=== PATIENT | female | born 1930 | race African-American/Black ===

== ENCOUNTER 2018-06-21 12:53 | Outpatient (CLI) | payer MEDICARE | END 2018-06-21 12:54 | disposition home or self-care (01) | LOC: BICMAMMO 12:53 | PROVIDERS: ATTEND Nurse Practitioner Family | DX: Z13.820 Encounter for screening for osteoporosis (principal); M85.89 Other specified disorders of bone density and structure, multiple sites; Z78.0 Asymptomatic menopausal state | CPT/HCPCS: 77080 ==

== ENCOUNTER 2018-07-02 10:41 | Outpatient (CLI) | payer MEDICARE | END 2018-07-02 10:42 | disposition home or self-care (01) | LOC: BICULT 10:41 | PROVIDERS: ATTEND Internal Medicine Nephrology | DX: N18.3 Chronic kidney disease, stage 3 (moderate) (principal); N28.1 Cyst of kidney, acquired; N13.30 Unspecified hydronephrosis | CPT/HCPCS: 76770 ==

== ENCOUNTER 2018-08-04 15:19 | Emergency (ER) | payer MEDICARE ==
--- NOTE | 2018-08-04 16:27 | CT ---
CT HEAD WITHOUT CONTRAST: 08/04/18 Multiple axial tomograms obtained through the head without IV enhancement. INDICATIONS: Fall with injury to head. Comparison made to head CT of 01/10/17. Ventricles remain normal size and position. Moderately severe chronic ischemic white matter changes a ppear stable from prior exam. No evidence of acute intracranial hemorrhage. No mass or infarct. Sinus es and mastoids appear aerated. IMPRESSION: No evidence of acute process or significant interval change from prior study. POS: RAJANI
[2018-08-04] MEDS ORDERED: Acetaminophen 500 MG TAB ONE (16:50)
== END 2018-08-04 17:04 | disposition home or self-care (01) ==
LOC: ERS 15:19
DX: S09.90XA Unspecified injury of head, initial encounter (principal); S00.01XA Abrasion of scalp, initial encounter; E11.9 Type 2 diabetes mellitus without complications; I10 Essential (primary) hypertension; Z79.899 Other long term (current) drug therapy; Z79.84 Long term (current) use of oral hypoglycemic drugs; W22.8XXA Striking against or struck by other objects, initial encounter
CPT/HCPCS: 70450

== ENCOUNTER 2018-11-13 09:28 | Outpatient (CLI) | payer MEDICARE ==
--- NOTE | 2018-11-13 11:06 | ULT ---
RENAL ULTRASOUND: INDICATIONS: Follow up hydronephrosis. COMPARISON: 07/02/2018 FINDINGS: The right kidney measures 9.8 x 3.9 x 4.3 cm. Mild right hydronephrosis is stable. Small cyst, muna uring 1 cm in size, involving the anterior aspect of the right mid kidney, is stable. Right-sided hy dronephrosis is unchanged, following voiding. The left kidney measures 8.8 x 4.7 x 4.5 cm. There is slight prominence of an inferior pole renal ca lyx, likely stable to the prior exam. No yamil hydronephrosis is evident. No focal solid renal lesi on is evident. Pre-void bladder volume is 24.5 mL. The patient completely emptied while voiding. IMPRESSION: 1. Stable mild right hydronephrosis. Recommend consideration for CT abdomen and pelvis without cont rast for further evaluation. 2. Small stable right renal cyst, measuring 1 cm. 3. Slight prominence of the inferior pole left renal calyx is likely stable to the prior examination , showing better detail on the current study. This may reflect a small peripelvic cyst or a small fo татьяна region of calyceal stenosis. CT examination may be helpful for improved characterization. POS: RAJANI
== END 2018-11-13 09:29 | disposition home or self-care (01) ==
LOC: BICULT 09:28
PROVIDERS: ATTEND Internal Medicine Nephrology
DX: N13.30 Unspecified hydronephrosis (principal); N28.1 Cyst of kidney, acquired; N18.3 Chronic kidney disease, stage 3 (moderate)
CPT/HCPCS: 76770

== ENCOUNTER 2019-04-03 13:07 | Outpatient (CLI) | payer MEDICARE ==
--- NOTE | 2019-04-03 13:35 | RAD ---
RIGHT HIP TWO VIEWS: 04/03/19 HISTORY: Right hip pain. COMPARISON: 01/18/06. FINDINGS/IMPRESSION: Significant arthrosis and degenerative changes with hypertrophic osteophytosis and joint space narrow ing without acute fracture or dislocation. POS: OFF
--- NOTE | 2019-04-03 13:39 | RAD ---
XR Knee Rt 4 View STANDARD HISTORY: Knee pain status post fall COMPARISON: There are no films available for comparison. FINDINGS: There are marked arthritic changes of the knee with severe degenerative changes of the medi al compartment also patellofemoral and lateral compartment degenerative change. Small joint effusion is seen. The bones are demineralized. No fracture. IMPRESSION: No evidence of fracture.
--- NOTE | 2019-04-03 13:52 | RAD ---
RIGHT FEMUR 2 VIEWS: FINDINGS: The proximal femur and hip were not included on this study but are included on the right hip exam don e today as well. No acute fracture or dislocation. Arthrosis changes of the knee joint. IMPRESSION: Arthrosis changes of the knee joint. No acute fracture or dislocation of the visualized femur. POS: OFF
== END 2019-04-03 13:08 | disposition home or self-care (01) ==
LOC: RAD-FRANK 13:07
PROVIDERS: ATTEND Nurse Practitioner Family
DX: M25.561 Pain in right knee (principal); M25.551 Pain in right hip; M16.11 Unilateral primary osteoarthritis, right hip; M25.751 Osteophyte, right hip; W19.XXXA Unspecified fall, initial encounter

== ENCOUNTER 2019-10-06 17:33 | Emergency (ER) | payer MEDICARE ==
--- NOTE | 2019-10-06 18:01 | RAD ---
4 views left knee: 10/06/2019 COMPARISON: None HISTORY: Swelling, fall FINDINGS: There is prominent medial and lateral compartment narrowing with prominent osteophyte forma tion. There is prominent patellofemoral joint space with posterior patellar osteophyte formation. There is no displaced fracture or evidence of dislocation seen. There is osseous fragmentation along the superior margin of the patella. IMPRESSION: Severe multicompartment degenerative joint disease. No acute fracture or dislocation.
--- NOTE | 2019-10-06 19:00 | CT ---
CT of the left knee: 10/06/2019 COMPARISON: None HISTORY: Injury, trauma, pain TECHNIQUE: Axial CT imaging at 2.5 mm intervals through the left knee without contrast. Coronal and s agittal reformatted imaging obtained. FINDINGS: There is corticated osseous fragmentation along the superior aspect of the patella. There i s significant posterior patellar osteophyte formation and associated subchondral sclerosis. There is no significant knee joint effusion. There is prominent medial compartment and lateral compartment degenerative disease with joint space n arrowing, chondrocalcinosis, and prominent osteophyte formation. The imaged portions of the distal femur demonstrate no evidence for acute fracture. There is prominent patellofemoral joint space narro wing with no discrete patellar fracture. The imaged proximal tibia and proximal fibula demonstrate no evidence for displaced fracture. No evid ence for dislocation is seen. IMPRESSION: Multicompartment degenerative joint disease. No displaced fracture or evidence of disloca tion is appreciated. If symptoms persist, nonemergent follow-up left knee MRI suggested to evaluate for an internal derangement.
[2019-10-06 19:24] LABS: #Eosinphils 0.1 thou/uL (0.0-0.7); #Lymphocytes 1.7 thou/uL (1.20-3.40); #Monocytes 0.5 thou/uL (0.11-0.59); #Neutrophils 2.1 thou/uL (1.40-6.50); %Basophils 1.1 % (0.0-1.0); %Eosinophils 1.6 % (0.0-10.0); %Lymphocytes 38.8 % (21.0-51.0); %Monocytes 11.2 % (0.0-10.0); %Neutrophils 47.4 % (42.0-75.0); Hemoglobin 12.8 g/dL (12.0-16.0); Mean Corpuscular HGB CONC 34.6 g/dL (32.0-36.0); Mean Corpuscular Hemoglobin 32.8 pg (27.0-31.0); Mean Corpuscular Volume 94.9 fL (78.0-98.0); Mean Platelet Volume 7.7 fL (7.4-10.4); Platelet Count 214 thou/uL (130-400); RBC Distribution Width 12.7 % (11.5-14.5); Red Blood Cell (RBC) Count 3.91 mill/uL (4.20-5.40); White Blood Cell (WBC) Count 4.4 thou/uL (4.8-10.8)
[2019-10-06 19:46] LABS: Anion Gap 14 mmol/L (10-20); BUN (Urea Nitrogen) 30 mg/dL (9.8-20.1); Calc. Creatinine Clearance 0 mL/min (70-130); Calcium 9.9 mg/dL (7.8-10.44); Carbon Dioxide 24 mmol/L (23-31); Chloride 107 mmol/L (98-107); Estimated GFR-MDRD 42; Glucose 94 mg/dL (83-110); Potassium 4.3 mmol/L (3.5-5.1); Sodium 141 mmol/L (136-145)
[2019-10-06] MEDS ORDERED: Acetaminophen 500 MG TAB ONE (23:07)
== END 2019-10-07 00:37 ==
LOC: ERS 17:33
DX: M25.462 Effusion, left knee (principal); E78.5 Hyperlipidemia, unspecified; E78.00 Pure hypercholesterolemia, unspecified; E11.9 Type 2 diabetes mellitus without complications; I10 Essential (primary) hypertension
CPT/HCPCS: 36415; 80048; 84484; 85025; 93005

== ENCOUNTER 2020-06-12 06:07 | Day surgery (SDC) | payer MEDICARE ==
[2020-06-12] MEDS ORDERED: Fentanyl 100 MCG/2 ML VIAL ONE (07:50)
[2020-06-12] MEDS ORDERED: Lidocaine 1% PF 5 ML VIAL ONE (09:52)
--- NOTE | 2020-06-12 11:31 | OP ---
DATE OF PROCEDURE: 06/12/2020 PROCEDURES PERFORMED: 1. Esophagogastroduodenoscopy with biopsy. 2. Colonoscopy with biopsy and polypectomy. INDICATIONS FOR PROCEDURE: Chronic midepigastric abdominal pain, irregular bowel habits/diarrhea. DESCRIPTION OF PROCEDURE: After the risks and benefits of the procedure were explained to the patient including risks of bleeding, infection, perforation, reactions to anesthesia, aspiration, and/or pain, informed consent was obtained. The patient was then taken to the endoscopy suite where she was maneuvered into the left lateral decubitus position followed by introduction of deep sedation via propofol and anesthesia support. Once adequate sedation was achieved, the standard gastroscope was introduced into the mouth with intubation of the esophagus, stomach, and the proximal small intestines with the findings listed below. The patient tolerated the procedure well with no immediate perioperative complications. On conclusion of the procedure, all equipment was removed from the patient and the bed was rotated 180 degrees in anticipation of the colonoscopy. A digital rectal examination was then performed followed by introduction of the standard colonoscope, which was advanced to the terminal ileum with some difficulty due to redundancy/tortuosity of the colon, requiring manual abdominal pressure to facilitate passage of the scope. Initially, the quality of the prep was fair with a large amount of retained liquid stool, but converted to a good prep with irrigation and suctioning. The patient tolerated this portion of the procedure well with no immediate perioperative complications. On conclusion of the procedure, all equipment was removed from the patient and she was transferred to Day Stay in satisfactory condition. EGD FINDINGS: Esophagus: Normal-appearing mucosa was seen in the proximal, mid, and distal esophagus. There was some mild tortuosity of the distal esophagus, consistent with presbyesophagus. However, there was no evidence of erosions, ulcerations, mass lesions, or active/recent bleeding. Stomach: Normal-appearing mucosa was seen in the gastric cardia, fundus, body, greater curvature, antrum, and incisura. There was no evidence of erosions, ulcerations, mass lesions, or active/recent bleeding. Duodenum: Mild mucosal erythema was seen in small patches in the duodenal bulb with each of these patches measuring 1 to 2 mm in diameter, but otherwise there was no other abnormality seen in this region. Normal-appearing mucosa was then seen in the second portion of the duodenum. Random biopsies were then taken from both the duodenal bulb and second portion of the duodenum for evaluation of possible celiac sprue. Otherwise, there was no evidence of erosions, ulcerations, mass lesions, or active/recent bleeding. IMPRESSION: 1. Mild duodenitis without other abnormalities. 2. Otherwise normal upper endoscopy. 3. No etiology for the patient's abdominal pain was seen during this portion of the exam. COLONOSCOPY FINDINGS: Digital rectal exam: Medium to large external hemorrhoids were seen on external examination, but normal sphincter tone noted with no masses palpated. Colon findings: Normal-appearing mucosa was seen within the terminal ileum as well as at the ileocecal valve and appendiceal orifice. Normal-appearing mucosa was then seen in the cecum, ascending colon, and transverse colon. Two polyps, measuring 2 mm and 6 to 7 mm, were seen in the descending colon and removed with cold snare and snare cautery polypectomy respectively. They were both retrieved and placed in a specimen jar for further evaluation. Scattered small diverticula were seen within the sigmoid colon. Normal-appearing mucosa was then seen within the rectum with small to medium-sized internal hemorrhoids seen on rectal retroflexion. IMPRESSION: 1. Two descending colon polyps, measuring 2 and 6-7 mm, status post cold snare and hot snare polypectomy respectively. 2. Mild sigmoid diverticulosis. 3. Internal and external hemorrhoids. 4. The etiology of the patient's abdominal pain was not seen during this examination today. 5. Fair colonic preparation with large amount of liquid stool, converted to a good prep with aggressive irrigation and suctioning. RECOMMENDATIONS: 1. Would follow up on the biopsy and polypectomy results with repeat colonoscopy based on pathology report. Based on the appearance today, most likely would repeat a surveillance colonoscopy in 5 years. 2. Would recommend a higher fiber diet given the presence of diverticulosis and hemorrhoids. 3. Continue fiber supplementation and MiraLAX one capsule twice daily for constipation. 4. Would continue the patient on omeprazole 20 mg daily until pathology report seen. If no abnormal findings, we will consider weaning the patient off this medication. 5. Would avoid any further laxatives/stool softeners as that may be creating these irregular bowel habits. 6. Follow up in the GI Clinic in 4-6 weeks for further evaluation. Job ID: [id number]
== END 2020-06-12 10:10 | disposition home or self-care (01) ==
LOC: SDC 06:07
PROVIDERS: ATTEND Internal Medicine
PROC: 0DBM8ZZ Excision of Descending Colon, Via Natural or Artificial Opening Endoscopic (ICD-10-PCS; principal; 2020-06-12)
PROC: 0DB98ZX Excision of Duodenum, Via Natural or Artificial Opening Endoscopic, Diagnostic (ICD-10-PCS; 2020-06-12)
DX: D12.4 Benign neoplasm of descending colon (principal); K29.80 Duodenitis without bleeding; K21.9 Gastro-esophageal reflux disease without esophagitis; E11.9 Type 2 diabetes mellitus without complications; E78.00 Pure hypercholesterolemia, unspecified; I10 Essential (primary) hypertension; Z79.82 Long term (current) use of aspirin; Z79.84 Long term (current) use of oral hypoglycemic drugs; Z79.899 Other long term (current) drug therapy; Z88.0 Allergy status to penicillin; Z88.5 Allergy status to narcotic agent
CPT/HCPCS: 88305; J3010

== ENCOUNTER 2020-06-24 17:25 | Inpatient (IN) | payer MEDICARE, OTHER ==
[~2020-06-24 17:25] MED LIST: Iopamidol-370 76% 500 ML 1 ML ONE
--- NOTE | 2020-06-24 17:38 | CT ---
Head CT without contrast 06/24/2020: COMPARISON: 08/04/2018 HISTORY: Right-sided weakness Stroke protocol TECHNIQUE: Axial CT imaging at 5 mm intervals from vertex through skull base without contrast FINDINGS: The visualized paranasal sinuses and mastoid air cells are well-aerated. No displaced melanie rial fracture, intracranial hemorrhage, midline shift, or mass effect. Periventricular white matter hypodensity again noted, evidence of small vessel disease. IMPRESSION: Stable chronic findings as above. No intracranial hemorrhage. Dr. Hernandez made aware a t 5:33 PM 06/24/2020
--- NOTE | 2020-06-24 17:54 | CT ---
CT angiogram head CT angiogram neck: 06/24/2020 COMPARISON: None HISTORY: Acute stroke protocol, right-sided weakness, aphasia TECHNIQUE: Axial CT imaging at 1.25 mm intervals from the vertex through the lung apices with IV cont rast using CT angiogram protocol. Coronal and sagittal 3-D reformatted imaging obtained. FINDINGS: The visualized lung apices demonstrate no acute findings. Incompletely imaged transvenous p acing device present. The retroantral fat, parapharyngeal fat, bilateral parotid and submandibular glands, bilateral tonsil lar pillars, epiglottis and preepiglottic fat, hyoid bone, thyroid cartilage, cricoid cartilage, thyroid gland, and level of the glottis appear grossly unremarkable. No lymphadenopathy is noted with in the neck. The origin of the innominate artery, right common carotid artery, right subclavian artery, left commo n carotid artery, and left subclavian artery unremarkable. There is mild stenosis at the origin of bilateral vertebral arteries. The vertebral arteries are patent bilaterally. On the basis of NASCET criteria, there is no hemodynamically significant stenosis involving the commo n carotid artery or internal carotid artery on either side. The basilar artery and its branches appear patent. The A1 segment and the distal FÉLIX branches appear grossly unremarkable bilaterally. The M1 segment, t he ICA bifurcation, and the MCA bifurcation appear grossly unremarkable bilaterally. No saccular aneurysm, high-grade stenosis, or central vascular occlusion is noted. Review of the osseous structures demonstrates no acute findings. IMPRESSION: No acute findings on CT angiography of the head and neck.
[2020-06-24 17:59] LABS: Hemoglobin 10.5 g/dL (12.0-16.0); Mean Corpuscular HGB CONC 33.8 g/dL (32.0-36.0); Mean Corpuscular Hemoglobin 31.4 pg (27.0-31.0); Mean Corpuscular Volume 92.9 fL (78.0-98.0); Mean Platelet Volume 6.7 fL (7.4-10.4); Platelet Count 225 thou/uL (130-400); RBC Distribution Width 12.2 % (11.5-14.5); Red Blood Cell (RBC) Count 3.33 mill/uL (4.20-5.40); White Blood Cell (WBC) Count 3.6 thou/uL (4.8-10.8)
[2020-06-24 18:03] LABS: INR-International Normal Ratio 1.1; PTT 30.2 sec (22.9-36.1); Prothrombin Time 14.3 sec (12.0-14.7)
--- NOTE | 2020-06-24 18:08 | RAD ---
PORTABLE CHEST ONE VIEW: 06/24/20 at 5:45 p.m. HISTORY: Stroke. COMPARISON: 05/18/20. Left sided pacemaker device remains in place. The heart size is normal. The aorta is tortuous. The antwon ngs are expanded without lobar consolidation, pneumothoraces, or pleural effusions. Degenerative cabrera ges in the left shoulder joint again seen. IMPRESSION: No acute process. POS: TRAM
[2020-06-24 18:11] LABS: ALT (SGPT) 11 U/L (8-55); AST (SGOT) 16 U/L (5-34); Albumin 3.5 g/dL (3.4-4.8); Alkaline Phosphatase 92 U/L (40-110); Anion Gap 11 mmol/L (10-20); BUN (Urea Nitrogen) 10 mg/dL (9.8-20.1); Bilirubin, Total 0.3 mg/dL (0.2-1.2); CK (CPK) 129 U/L (29-168); Calc. Creatinine Clearance 0 mL/min (70-130); Calcium 8.8 mg/dL (7.8-10.44); Carbon Dioxide 23 mmol/L (23-31); Chloride 92 mmol/L (98-107); Estimated GFR-MDRD 67; Globulin 2.4 g/dL (2.4-3.5); Glucose 113 mg/dL (83-110); Magnesium 1.6 mg/dL (1.6-2.6); Potassium 4.8 mmol/L (3.5-5.1); Protein, Total 5.9 g/dL (6.0-8.3); Sodium 121 mmol/L (136-145)
[2020-06-24 18:24] LABS: Band 20 % (5-11); Lymphocytes 36 % (21-51); MDiff Complete? YES; Metamyelocyte 3 % (0-0); Monocytes 5 % (0-10); Neutrophil 32 % (42-75); Reactive Lymphocytes 2 % (0-10)
[2020-06-24 18:53] LABS: CKMB 3.2 ng/mL (0-6.6)
[2020-06-24] MEDS ORDERED: Aspirin 325 MG TAB ONE (18:55)
[2020-06-24] MEDS ORDERED: Famotidine 20 MG TAB PO SCH (21:00)
[2020-06-24] MEDS ORDERED: Acetaminophen 325 MG TAB PO PRN (21:00)
[2020-06-24] MEDS ORDERED: Guaifenesin DM 100-10/5 ML UDCUP PO PRN (21:00)
[2020-06-24] MEDS ORDERED: Promethazine HCl 12.5 MG in Sodium Chloride 0.9% 50 ML IVPB PRN (21:00)
[2020-06-24] MEDS ORDERED: Electrolyte Replacement Protoc 1 EACH EACH FS SCH (21:00)
[2020-06-24] MEDS ORDERED: Sodium Chloride 0.9% 1,000 ML IV SCH ×2 (21:00→21:04)
[2020-06-24] MEDS ORDERED: Insulin Regular 300 UNITS/3 ML VIAL SC PRN (21:02)
[2020-06-24] MEDS ORDERED: Labetalol HCl 100 MG/20 ML VIAL SLOW IVP PRN (21:02)
[2020-06-24] MEDS ORDERED: hydrALAZINE 20 MG/ML VIAL SLOW IVP PRN (21:02)
--- NOTE | 2020-06-24 21:06 | PDOC.HHP ---
Hospitalist HPI - History of Present Illness Altered mental status, R sided weakness History of Present Illness: Patient is an 89 year old female with PMH HTN, HLD, T2DM not on insulin, GERD, gout who presents to ED for altered mental status and R sided weakness. She was a stroke alert in ED, symptoms began at 1:30pm today. Patient is confused on interview, slurring speech and incoherent most of time, this is improvement from when she first got to ED, could not talk at all at first and was unresponsive when EMS found her. In ED, CT head with stable findings and no IC hemorrhage. CTA chest and CXR without acute findings as well. Troponin mildly elevated. Na was 121. Given R sided weakness which was improving, patient was admitted for TIA/stroke workup. Hospitalist ROS - Review of Systems ROS unobtainable: due to mental status (altered mental status) - Medication Medications: metFORMIN TABLET : Strength - 1,000 mg : ORAL Patient Dose: 1000 mg Oral 2 times a day (before meals). carvedilol TABLET : Strength - 6.25 mg : ORAL Patient Dose: 1 tab(s) Oral 2 times a day. allopurinol TABLET : Strength - 100 mg : ORAL Patient Dose: 1 tab(s) Oral once a day. Myrbetriq TABLET, EXTENDED RELEASE 24 HR : Strength - 50 mg : ORAL Patient Dose: 1 tab(s) Oral once a day. Lasix oral TABLET : Strength - 20 mg : ORAL Patient Dose: 1 tab(s) Oral.PRN FOR LEG SWELLING. alendronate TABLET : Strength - 70 mg : ORAL Patient Dose: 1 tab(s) Oral once a week. amLODIPine TABLET : Strength - 5 mg : ORAL Patient Dose: 1 tab(s) Oral once a day. omeprazole CAPSULE,DELAYED RELEASE (ENTERIC COATED) : Strength - 20 mg : ORAL Patient Dose: 1 tab(s) Oral 2 times a day (before meals). rosuvastatin tablet : Strength - 20 mg : ORAL Patient Dose: 20 mg Oral once a day. Senna Lax 8.6 mg : Strength - tablet : ORAL Patient Dose: 50 mg Oral 2 times a day (before meals). Miralax 17 gram/dose : Strength - POWDER (GRAM) : ORAL Patient Dose: 17 g Oral 2 times a day (before meals). Fleet Mineral Oil : Strength - enema : RECTAL Patient Dose: 1 ea RECTAL ONCE. Hospitalist History - Past Medical History Other Medical History: HTN, HLD, T2DM not on insulin, GERD, gout - Past Surgical History Past Surgical History: reports: Hysterectomy - Family History Family History: reports: no pertinent history - Social History Smoking Status: Never smoker Alcohol: reports: None Drugs: reports: none - Exam General Appearance: NAD, awake alert Eye: PERRL, anicteric sclera ENT: normocephalic atraumatic, no oropharyngeal lesions, moist mucosa Neck: supple, symmetric, no JVD, no thyromegaly, no lymphadenopathy, no carotid bruit Heart: RRR, no murmur, no gallops, no rubs, normal peripheral pulses Respiratory: CTAB, no wheezes, no rales, no ronchi, normal chest expansion, no tachypnea, normal percussion Gastrointestinal: soft, non-tender, non-distended, normal bowel sounds, no palpable masses, no hepatomegaly, no splenomegaly, no bruit Extremities: no cyanosis, no clubbing, no edema Skin: normal turgor, no lesions, no rashes Neurological: cranial nerve grossly intact, normal sensation to touch, no weakness, no focal deficits, no new deficit Neurological - other findings: exam limited by mental status Musculoskeletal: normal tone, normal strength, no muscle wasting Psychiatric: normal affect, normal behavior, A&O x 3 Hospitalist Results - Labs Result Diagrams: 06/24/20 17:42 06/24/20 17:42 Lab results: WBC 3.6 thou/uL (4.8-10.8) L 06/24/20 17:42 Hgb 10.5 g/dL (12.0-16.0) L 06/24/20 17:42 Hct 31.0 % (36.0-47.0) L 06/24/20 17:42 MCV 92.9 fL (78.0-98.0) 06/24/20 17:42 Plt Count 225 thou/uL (130-400) 06/24/20 17:42 Band Neuts % (Manual) 20 % (5-11) H 06/24/20 17:42 Sodium 121 mmol/L (136-145) L 06/24/20 17:42 Potassium 4.8 mmol/L (3.5-5.1) 06/24/20 17:42 Chloride 92 mmol/L (98-107) L 06/24/20 17:42 Carbon Dioxide 23 mmol/L (23-31) 06/24/20 17:42 BUN 10 mg/dL (9.8-20.1) 06/24/20 17:42 Creatinine 0.95 mg/dL (0.6-1.1) 06/24/20 17:42 Glucose 113 mg/dL (83-110) H 06/24/20 17:42 Lactic Acid 1.2 mmol/L (0.5-2.2) 06/24/20 17:42 Calcium 8.8 mg/dL (7.8-10.44) 06/24/20 17:42 Total Bilirubin 0.3 mg/dL (0.2-1.2) 06/24/20 17:42 AST 16 U/L (5-34) 06/24/20 17:42 ALT 11 U/L (8-55) 06/24/20 17:42 Alkaline Phosphatase 92 U/L (40-110) 06/24/20 17:42 Creatine Kinase 129 U/L (29-168) 06/24/20 17:42 CK-MB (CK-2) 3.2 ng/mL (0-6.6) 06/24/20 17:42 Troponin I 0.044 ng/mL (< 0.028) H 06/24/20 17:42 Serum Total Protein 5.9 g/dL (6.0-8.3) L 06/24/20 17:42 Albumin 3.5 g/dL (3.4-4.8) 06/24/20 17:42 Additional comment: VITAL SIGNS Wed Jun 24, 2020 17:51 MIRTA Maharaj Miranda BP: 143/71 Pulse: 64 Resp: 15 Time: 06/24/2020 17:51. labs, imaging reports, ED documents reviewed - EKG Interpretation EKG: rate 65, AV paced, no ST changes of acuity Hospitalist H&P A/P - Plan Plan: Patient is an 89 year old female with PMH HTN, HLD, T2DM not on insulin, GERD, gout who presents to ED for altered mental status and R sided weakness. # R sided weakness # altered mental status # aphasia Patient was a stroke alert in ED, unresponsive when EMS found her and now awake and alert but confused. In ED, CT head with stable findings and no IC hemorrhage. CTA chest and CXR without acute findings as well. Troponin mildly e levated. Na was 121. Given R sided weakness which was improving, patient was admitted for TIA/stroke workup. Na was very low at 121, which may be contributing as well. - admit to stroke unit - stroke order set, permissive HTN, rehab consult - has pacemaker, no MRI ordered - treat low sodium as below - send blood cultures, defer antibiotics given no source of infection # hyponatremia - patient with sodium of 121, confusion/altered mental status. sodium has been as high as 136 in March, she was admitted last month for chest pain and also had a low sodium (123) that admission, and did not have any symptoms at that time, was 128 on discharge. She is on diuretics at home. - hold lasix - IVF x 1 bag, watch for signs of overload - BMP q8h, hopefully will improve with holding diuretic and IV hydration # recent diagnoses of sick sinus syndrome s/p pacemaker placement - patient admitted in May of this year for chest pain, found to have sick sinus syndrome, pacemaker was placed, echo at that time revealed preserved EF, Dr Munoz of cardiology followed that admission # elevated troponins - unclear cause, consult Dr Munoz # DM - on metformin at home, hold this for now and start SSI # HTN - PRN medications in chart, resume home meds as appropriate # history of lipoma - outpatient CT thorax recommended on nonurgent basis # DVT/GI ppx full code
[2020-06-24 21:29] LABS: Troponin I 0.033 ng/mL (< 0.028)
[2020-06-24] MEDS ORDERED: Magnesium 2 GM/50 ML 2 GM in Premix Bag 1 BAG IVPB SCH (21:30)
[2020-06-24] MEDS ORDERED: Acetaminophen 325 MG TAB PO SCH (21:30)
[2020-06-24 23:11] LABS: Bilirubin Negative (Negative); Blood, Urine Negative (Negative); Clarity Clear (Clear); Glucose, Urine (Dipstick) Normal (Negative); Ketone, Urine Negative (Negative); Leukocyte Negative Leu/uL (Negative); Nitrite Negative (Negative); Protein, Urine (Dipstick) 10 mg/dL (Neg-Trace); Squamous Epithelial None Seen HPF (0-3); Urobilinogen Normal mg/dL (Less than 2); WBC/HPF 0-3 HPF (0-3); pH, Urine 7.5 (5.0-9.0)
[2020-06-24 23:16] LABS: Bacteria/HPF Rare-Few HPF (None Seen)
[2020-06-24 23:17] LABS: Urine Culture Reflex No No
[2020-06-25 00:24] LABS: Troponin I 0.059 ng/mL (< 0.028)
[2020-06-25 07:06] LABS: #Monocytes 0.5 thou/uL (0.11-0.59); #Neutrophils 3.3 thou/uL (1.40-6.50); %Basophils 0.9 % (0.0-1.0); %Eosinophils 0.2 % (0.0-10.0); %Lymphocytes 20.5 % (21.0-51.0); %Monocytes 9.5 % (0.0-10.0); %Neutrophils 68.9 % (42.0-75.0); Hemoglobin 11.7 g/dL (12.0-16.0); Mean Corpuscular Hemoglobin 31.8 pg (27.0-31.0); Mean Corpuscular Volume 93.5 fL (78.0-98.0); Mean Platelet Volume 6.5 fL (7.4-10.4); Platelet Count 229 thou/uL (130-400); RBC Distribution Width 12.3 % (11.5-14.5); Red Blood Cell (RBC) Count 3.68 mill/uL (4.20-5.40); White Blood Cell (WBC) Count 4.7 thou/uL (4.8-10.8)
[2020-06-25 07:40] LABS: Anion Gap 12 mmol/L (10-20); BUN (Urea Nitrogen) 8 mg/dL (9.8-20.1); Calc. Creatinine Clearance 59 mL/min (70-130); Calcium 9.1 mg/dL (7.8-10.44); Carbon Dioxide 23 mmol/L (23-31); Cardiac Risk 2.6 (Less than 4.5); Chloride 95 mmol/L (98-107); Cholesterol 176 mg/dl (< 200 Desired); Estimated GFR-MDRD 75; Glucose 98 mg/dL (83-110); HDL Cholesterol 68 mg/dL (>60 Neg Risk); LDL Cholesterol, Calculated 100 mg/dL; Potassium 4.1 mmol/L (3.5-5.1); Sodium 126 mmol/L (136-145); Triglycerides 42 mg/dL (Less than 150)
--- NOTE | 2020-06-25 09:42 | CON ---
DATE OF CONSULTATION: 06/25/2020 REASON FOR CONSULTATION: Elevated troponin and recent CVA. HISTORY OF PRESENT ILLNESS: Ms. Richardson is a pleasant 89-year-old woman, who was seen and evaluated in the past. She recently underwent pacemaker placement for sick sinus syndrome. Recently, she presented with mental status changes. Upon my interview, she continues to have a slurred speech, mental status changes, not oriented to time, person, or place. PAST MEDICAL HISTORY: Aortic stenosis, hypertension, status post pacemaker placement, sick sinus syndrome, diabetes mellitus, mild aortic stenosis. HOME MEDICATIONS: Include; 1. MiraLAX. 2. Lasix. 3. Allopurinol. 4. Metformin. 5. Amlodipine. 6. Aspirin. 7. Citracal. 8. Omeprazole. 9. Carvedilol. 10. Alendronate. 11. Vitamin D. 12. Tylenol. 13. Centrum. 14. Myrbetriq. SURGICAL HISTORY: As above including hysterectomy. SOCIAL HISTORY: No current tobacco or alcohol use. REVIEW OF SYSTEMS: Unobtainable. PHYSICAL EXAMINATION: VITAL SIGNS: Blood pressure 147/87, pulse 78, temperature 98. General: She is not oriented to time, person, or place. Head, Eyes, Ears, Nose and Throat: Sclerae without icterus. Mouth: Moist mucous membranes, normal palate. Neck: No jugular venous distention. Carotid upstroke is brisk. No bruits bilaterally. Lungs: Clear to auscultation. Heart: Regular rate and rhythm, normal S1 and S2. Abdomen: Soft, nontender, nondistended. Extremities: No edema. PERTINENT LABORATORY DATA: Hemoglobin 11.7, platelet count 329. Creatinine 0.86. Peak troponin 0.059. DIAGNOSTIC STUDIES: EKG, paced rhythm. IMPRESSION: 1. Elevated troponin. 2. Mental status changes. 3. ? CVA. RECOMMENDATIONS: Elevated troponin secondary to type 2 IL from likely recent stroke. Evaluation is currently in progress with Neurology consult. We would recommend interrogating the pacemaker for possible atrial fibrillation, which she has not had in the past. Would make recommendations if she truly has underlying atrial fibrillation. Otherwise would not have any further recommendations. We will continue to monitor and treat underlying primary condition. Job ID: [id number]
[2020-06-25] MEDS: Amlodipine 5 MG TAB PO SCH (09:55)
[2020-06-25] MEDS: Aspirin 81 mg Enteric Coated Tablet PO SCH (09:55)
[2020-06-25] MEDS: Enoxaparin Sodium 40 MG/0.4 ML SYRINGE SC SCH (09:58)
[2020-06-25] MEDS: Polyethylene Glycol 3350 17 GM Packet PO SCH (09:58)
[2020-06-25] MEDS: Allopurinol 100 MG TAB PO SCH (09:58)
[2020-06-25] MEDS: Carvedilol 6.25 MG TAB PO SCH ×2 (09:58→22:02)
[2020-06-25] MEDS ORDERED: Magnesium 2 GM/50 ML 2 GM in Premix Bag 1 BAG IVPB SCH (10:00)
--- NOTE | 2020-06-25 11:27 | PDOC.HOSPP ---
- Subjective Encounter Date: 06/25/20 Subjective: Patient denies any complaints at this time. - Objective Vital Signs & Weight: Vital Signs (12 hours) Temp Pulse Resp BP BP Pulse Ox 06/25/20 09:58 132/65 06/25/20 09:55 62 132/65 06/25/20 08:15 98.0 F 73 20 147/87 H 97 06/25/20 07:50 98.0 F 62 20 141/71 H 96 06/25/20 05:53 97.4 F L 06/25/20 04:00 100.0 F H 78 18 132/64 99 06/25/20 00:00 98.7 F 80 20 141/76 H 98 Weight Weight 182 lb 9.6 oz I&O: 06/24/20 06/25/20 06/26/20 06:59 06:59 06:59 Intake Total 650 Output Total 600 Balance 50 Result Diagrams: 06/25/20 06:53 06/25/20 06:53 Additional Labs: Accuchecks 06/25/20 06/24/20 10:36 22:31 POC Glucose 132 H 126 H Hospitalist ROS - Medication Medications: Active Medications Generic Name Dose Route Start Last Admin Trade Name Freq PRN Reason Stop Dose Admin Allopurinol 100 mg 06/25/20 09:00 06/25/20 09:58 Allopurinol 100 Mg Tab PO 100 mg DAILY ELISSA Administration Amlodipine Besylate 5 mg 06/25/20 09:00 06/25/20 09:55 Amlodipine 5 Mg Tab PO 5 mg DAILY ELISSA Administration Aspirin 81 mg 06/25/20 09:00 06/25/20 09:55 Aspirin 81 Mg Enteric Coated Tablet PO 81 mg DAILY ELISSA Administration Carvedilol 6.25 mg 06/25/20 09:00 06/25/20 09:58 Carvedilol 6.25 Mg Tab PO 6.25 mg BID ELISSA Administration Enoxaparin Sodium 40 mg 06/25/20 09:00 06/25/20 09:58 Enoxaparin Sodium 40 Mg/0.4 Ml Syringe SC 40 mg 0900 ELISSA Administration Pantoprazole Sodium 40 mg 06/25/20 09:00 06/25/20 09:58 Pantoprazole 40 Mg Tab PO 40 mg DAILY ELISSA Administration Polyethylene Glycol 17 gm 06/25/20 09:00 06/25/20 09:58 Polyethylene Glycol 3350 17 Gm Packet PO 17 gm DAILY ELISSA Administration - Exam General Appearance: NAD, awake alert General - other findings: Patient was sleeping but generally easily awakened. Hearing deficit Heart: RRR, no murmur, no gallops, no rubs, normal peripheral pulses Respiratory: CTAB, no wheezes, no rales, no ronchi, normal chest expansion, no tachypnea, normal percussion Gastrointestinal: soft, non-tender, non-distended, normal bowel sounds, no palpable masses, no hepatomegaly, no splenomegaly, no bruit Extremities: no cyanosis, no clubbing, no edema Skin: normal turgor Neurological - other findings: Appears to have fairly symmetric showcase maker strength. Speech is intact. Musculoskeletal: generalized weakness Psychiatric: normal affect, normal behavior Hosp A/P (1) TIA (transient ischemic attack) Code(s): G45.9 - TRANSIENT CEREBRAL ISCHEMIC ATTACK, UNSPECIFIED Status: Acute (2) Hyponatremia Code(s): E87.1 - HYPO-OSMOLALITY AND HYPONATREMIA Status: Acute (3) DMII (diabetes mellitus, type 2) Status: Chronic (4) HTN (hypertension) Code(s): I10 - ESSENTIAL (PRIMARY) HYPERTENSION Status: Chronic (5) Elevated troponin Code(s): R79.89 - OTHER SPECIFIED ABNORMAL FINDINGS OF BLOOD CHEMISTRY Status: Acute (6) Acute metabolic encephalopathy Code(s): G93.41 - METABOLIC ENCEPHALOPATHY Status: Acute - Plan TIA versus CVA: Patient presented with some encephalopathy, aphasia, right-sided weakness. These all seem to have resolved at this time. Work-up includes a CTA pending at this time. She has a pacemaker therefore will not likely get an MRI. PT OT and speech therapy consults. Neurology consult. Continue aspirin and statin. Of note the patient had an echo in May. Hyponatremia: Patient has had a history of hyponatremia. At her most recent discharge her number was 128. Unclear if this could be related to her neurologic symptoms. It has improved with some IV hydration. Discontinuing the IV fluids at this time in order to slow the rate of recovery. Sick sinus syndrome: Recent pacemaker placement. Will interrogate. Elevated troponins: Likely not representing either acute NSTEMI or demand ischemia but may more likely be related to pacemaker placement. Defer that to cardiology. Diabetes mellitus: Sliding scale insulin, Accu-Cheks, diabetic diet. Acute metabolic encephalopathy: Likely related to potential TIA. Appears to be resolved. DVT prophylaxis: Lovenox PUD prophylaxis: Pantoprazole.
[2020-06-25 12:18] LABS: SARS-CoV-2 MS2 Positive; SARS-CoV-2 N Gene Negative; SARS-CoV-2 S Gene Negative; SARS-CoV-2 by NAA Not Detected (NotDetected); SARS-CoV-2 orf1ab Negative
[2020-06-25 12:23] LABS: Anion Gap 11 mmol/L (10-20); BUN (Urea Nitrogen) 9 mg/dL (9.8-20.1); Calc. Creatinine Clearance 60 mL/min (70-130); Calcium 9.2 mg/dL (7.8-10.44); Carbon Dioxide 24 mmol/L (23-31); Chloride 96 mmol/L (98-107); Estimated GFR-MDRD 76; Glucose 90 mg/dL (83-110); Potassium 4.2 mmol/L (3.5-5.1); Sodium 127 mmol/L (136-145)
--- NOTE | 2020-06-25 12:44 | CON ---
NEUROLOGY CONSULTION DATE OF CONSULTATION: 06/25/2020 REASON FOR CONSULTATION: Altered mental status and right-sided weakness with aphasia. HISTORY OF PRESENT ILLNESS: Ms. Yudy Richardson is an 89-year-old female with medical history significant for hypertension, hyperlipidemia, type 2 diabetes mellitus, gastroesophageal reflux disease, gout, presented to the emergency room with altered mental status and right-sided weakness. She was a stroke alert in the emergency room and the symptoms began around 1:30 p.m. on 06/24/2020. The patient was confused on initial presentation with slurred speech and was unable to follow commands appropriately. Per EMS, she was found unresponsive and there was a concern about right-sided weakness which improved and completely resolved while she was in the emergency room and then she was admitted for TIA workup. REVIEW OF SYSTEMS: Unobtainable due to the patient's mental status. MEDICATIONS: 1. Metformin 1000 mg twice daily. 2. Carvedilol 6.25 mg twice daily. 3. Allopurinol 100 mg once a day. 4. Myrbetriq 50 mg once a day. 5. Lasix 20 mg p.r.n. for leg swelling. 6. Alendronate 70 mg once a week. 7. Amlodipine 5 mg once a day. 8. Omeprazole 20 mg once a day. 9. Senna 8.6 mg twice daily. 10. MiraLAX 17 g oral twice daily. 11. Fleet mineral oil, rectal once. PAST MEDICAL HISTORY: Hypertension, hyperlipidemia, type 2 diabetes mellitus, gout, and gastroesophageal reflux disease. PAST SURGICAL HISTORY: Hysterectomy. FAMILY HISTORY: There is no pertinent family history. SOCIAL HISTORY: There is no documented history of alcohol, illegal drug abuse or smoking. Objective Vital Signs & Weight: Vital Signs (12 hours) Temp Pulse Resp BP BP Pulse Ox 06/25/20 09:58 132/65 06/25/20 09:55 62 132/65 06/25/20 08:15 98.0 F 73 20 147/87 H 97 06/25/20 07:50 98.0 F 62 20 141/71 H 96 06/25/20 05:53 97.4 F L 06/25/20 04:00 100.0 F H 78 18 132/64 99 06/25/20 00:00 98.7 F 80 20 141/76 H 98 Weight Weight 182 lb 9.6 oz I&O: 06/24/20 06/25/20 06/26/20 06:59 06:59 06:59 Intake Total 650 Output Total 600 Balance 50 Additional Labs: Accuchecks 06/25/20 06/24/20 10:36 22:31 POC Glucose 132 H 126 H Active Medications Generic Name Dose Route Start Last Admin Trade Name Georges PRN Reason Stop Dose Admin Allopurinol 100 mg 06/25/20 09:00 06/25/20 09:58 Allopurinol 100 Mg Tab PO 100 mg DAILY ELISSA Administration Amlodipine Besylate 5 mg 06/25/20 09:00 06/25/20 09:55 Amlodipine 5 Mg Tab PO 5 mg DAILY ELISSA Administration Aspirin 81 mg 06/25/20 09:00 06/25/20 09:55 Aspirin 81 Mg Enteric Coated Tablet PO 81 mg DAILY ELISSA Administration Carvedilol 6.25 mg 06/25/20 09:00 06/25/20 09:58 Carvedilol 6.25 Mg Tab PO 6.25 mg BID ELISSA Administration Enoxaparin Sodium 40 mg 06/25/20 09:00 06/25/20 09:58 Enoxaparin Sodium 40 Mg/0.4 Ml Syringe SC 40 mg 0900 ELISSA Administration Pantoprazole Sodium 40 mg 06/25/20 09:00 06/25/20 09:58 Pantoprazole 40 Mg Tab PO 40 mg DAILY EILSSA Administration Polyethylene Glycol 17 gm 06/25/20 09:00 06/25/20 09:58 Polyethylene Glycol 3350 17 Gm Packet PO 17 gm DAILY ELISSA Administration - Exam General Appearance: NAD, awake alert General - other findings: Patient was sleeping but generally easily awakened. Hearing deficit Heart: RRR, no murmur, no gallops, no rubs, normal peripheral pulses Respiratory: CTAB, no wheezes, no rales, no ronchi, normal chest expansion, no tachypnea, normal percussion Gastrointestinal: soft, non-tender, non-distended, normal bowel sounds, no palpable masses, no hepatomegaly, no splenomegaly, no bruit Extremities: no cyanosis, no clubbing, no edema Skin: normal turgor Neurological - Mental status: The patient is alert and oriented to person and place but not to time. Follows commands intermittently. Motor, muscle tone and bulk are normal. Moving all 4 extremities equally and symmetrically. She did not cooperate with strength testing. Cerebellar, did not cooperate with the testing. Cranial nerves, pupils are 4 mm round and reactive to light. Face symmetric. Tongue midline. Moves neck in both direction. Hearing seems to be intact. Sensory, withdraws to nailbed pressure bilaterally. Gait deferred due to the patient's safety reason. DATA REVIEWED: Labs were significant for anemia, hemoglobin 10.5, hematocrit 31; hyponatremia, 121 sodium; and hyperglycemia, 113 blood glucose. Rest of the labs were essentially unremarkable. Head CT did not reveal any acute intracranial pathology. EKG showed AV paced rate 65. ASSESSMENT AND PLAN: (1) TIA (transient ischemic attack) Code(s): G45.9 - TRANSIENT CEREBRAL ISCHEMIC ATTACK, UNSPECIFIED Status: Acute (2) Hyponatremia Code(s): E87.1 - HYPO-OSMOLALITY AND HYPONATREMIA Status: Acute (3) DMII (diabetes mellitus, type 2) Status: Chronic (4) HTN (hypertension) Code(s): I10 - ESSENTIAL (PRIMARY) HYPERTENSION Status: Chronic (5) Elevated troponin Code(s): R79.89 - OTHER SPECIFIED ABNORMAL FINDINGS OF BLOOD CHEMISTRY Status: Acute (6) Acute metabolic encephalopathy Code(s): G93.41 - METABOLIC ENCEPHALOPATHY Status: Acute Ms. Yudy Richardson is an 89-year-old female with medical history significant for hypertension, hyperlipidemia, type 2 diabetes mellitus, gastroesophageal reflux disease, and gout, presented with altered mental status and right-sided focal weakness with aphasia. The neurological deficits are now resolved. She is alert and awake, but still not fully oriented and is unable to follow commands intermittently. Most likely TIA is in the differential, but the focal deficits are now resolved. Continue aspirin and high-intensity statin for secondary stroke prevention, strict control of blood pressure and blood glucose, neuro checks every 4 hours. Continue home medications. 2D echo completed in May. No need to repeat the testing. CT angiogram of the head and neck is negative for hemodynamically significant stenosis. Persistent confusion most likely secondary to hyponatremia. Consider Nephrology input. Consider Cardiology input regarding interrogation of pacemaker. We can repeat head CT tomorrow since unable to get MRI because of pacemaker. Continue medical management per primary team. EEG to rule out cortical irritability is negative for seizure activity.. PT/OT/Speech, DVT prophylaxis. We will continue to follow. Thank you for the consult. Job ID: [id number] [facility]
--- NOTE | 2020-06-25 16:41 | EEG ---
DATE OF SERVICE: 06/25/2020 ATTENDING PHYSICIAN: Virgen Figueroa MD. This EEG was performed using 24-channel [employer] video digital EEG machine with 24-disk electrodes. This was a routine EEG recording. BACKGROUND: The posterior background rhythm was not observed. HYPERVENTILATION: Not performed. PHOTIC STIMULATION: Not performed. SLEEP: Drowsiness and sleep are observed. EEG DIAGNOSES: 1. Intermittent irregular theta activity seen during the recording. 2. Absence of posterior background rhythm. CLINICAL INTERPRETATION: This EEG is consistent with moderate generalized nonspecific cerebral dysfunction. Job ID: [id number]
[2020-06-25 20:29] LABS: Anion Gap 13 mmol/L (10-20); BUN (Urea Nitrogen) 11 mg/dL (9.8-20.1); Calc. Creatinine Clearance 51 mL/min (70-130); Carbon Dioxide 22 mmol/L (23-31); Chloride 98 mmol/L (98-107); Estimated GFR-MDRD 64; Glucose 101 mg/dL (83-110); Potassium 4.1 mmol/L (3.5-5.1); Sodium 129 mmol/L (136-145)
[2020-06-25] MEDS: Rosuvastatin 20 MG TAB PO SCH (22:00)
--- NOTE | 2020-06-25 22:14 | CON ---
DATE OF CONSULTATION: CONSULTING PHYSICIAN: Aubrey Finley MD REQUESTING PHYSICIANS: Dr. Khan and Dr. Rene. REASON FOR CONSULTATION: Hyponatremia. IMPRESSION: 1. Hyponatremia, query cause. This is possibly going to be related to osmolar intake, however, cannot completely rule out syndrome of inappropriate antidiuretic hormone secretion. 2. Right-sided weakness, query cause. 3. Advanced age. PLAN: 1. In order to identify the best way to approach this hyponatremia, we will check the urine osmolality and the urine sodium. 2. May be safer to hold off on IV fluid for now until the proper type of hyponatremia and its specific managements are identified. 3. Further management will be dependent on the clinical course. HISTORY OF PRESENT ILLNESS: History is that of 89-year-old female patient with history of hypertension, dyslipidemia, diabetes, reflux disease, who presented with altered mental status, noted with right-sided weakness, slurring of speech. The patient could not offer a lot of history to me, noted on presentation with a sodium of 121. As a result of these findings, decision has been taken to involve Ren[facility] in the management of this case. PAST MEDICAL HISTORY: As documented in the body of the history. MEDICATIONS: Reviewed and as documented on DDN. FAMILY HISTORY: Nonsignificant related to present illness. SOCIAL HISTORY: No alcohol. No tobacco. No illicit drug use. REVIEW OF SYSTEMS: Highly limited given the fact that this patient is not very communicative. PHYSICAL EXAMINATION: GENERAL: The patient was found not to be in any obvious distress. VITAL SIGNS: Noted with the following vital signs. Afebrile, temperature 98.1, pulse 63, respiratory rate of 17, O2 saturations are 99% with a blood pressure 139/67. HEENT: Unremarkable. CARDIOVASCULAR SYSTEM: First and second heart sounds were heard. RESPIRATORY SYSTEM: Clear to auscultation. DIGESTIVE SYSTEM: Revealed a benign abdomen with positive bowel sounds. EXTREMITIES: No peripheral edema. SKIN: No new gross rash. LYMPHATICS: No peripheral lymphadenopathy. NEUROLOGIC: Revealed the patient has slight slurred speech and right-sided weakness. SUMMARY: An 89-year-old female patient who presented here with features suggestive of cerebrovascular accident, noted to be hyponatremic. Thank you for this consultation. We will follow with you. Job ID: [id number]
[2020-06-26 05:37] LABS: Anion Gap 16 mmol/L (10-20); BUN (Urea Nitrogen) 13 mg/dL (9.8-20.1); Calc. Creatinine Clearance 53 mL/min (70-130); Calcium 9.2 mg/dL (7.8-10.44); Carbon Dioxide 19 mmol/L (23-31); Chloride 100 mmol/L (98-107); Estimated GFR-MDRD 66; Glucose 98 mg/dL (83-110); Potassium 4.3 mmol/L (3.5-5.1); Sodium 131 mmol/L (136-145)
--- NOTE | 2020-06-26 08:45 | PRG ---
DATE OF SERVICE: 06/26/2020 SUBJECTIVE: Ms. Richardson is doing better today. She is more lucid. She is oriented to time, person, and place. No current complaints. OBJECTIVE: VITAL SIGNS: Blood pressure 120/75, pulse 61, and temperature 97.6. LUNGS: Clear to auscultation. HEART: Regular rate and rhythm. ABDOMEN: Soft, nontender, and nondistended. EXTREMITIES: No edema. DIAGNOSTIC DATA: Pacemaker interrogation shows normal function. No significant dysrhythmias present. IMPRESSION: 1. Elevated troponin. 2. Recent cerebrovascular accident. RECOMMENDATION: From a heart standpoint, Ms. Richardson is stable. Her elevated troponin likely related to recent CVA. We will continue with conservative therapy. I would recommend continued aspirin in addition to carvedilol and Crestor. Otherwise, I have no further recommendations. Plan is to follow up Ms. Richardson in the next 1 to 2 weeks. Job ID: [id number]
[2020-06-26] MEDS: Polyethylene Glycol 3350 17 GM Packet PO SCH (08:50)
[2020-06-26] MEDS: Allopurinol 100 MG TAB PO SCH (08:50)
[2020-06-26] MEDS: Aspirin 81 mg Enteric Coated Tablet PO SCH (08:51)
[2020-06-26] MEDS: Carvedilol 6.25 MG TAB PO SCH ×2 (08:51→22:04)
[2020-06-26] MEDS: Amlodipine 5 MG TAB PO SCH (08:51)
--- NOTE | 2020-06-26 12:04 | PDOC.NEUPN ---
- Subjective Encounter Date: 06/26/20 Subjective: Patient feels much better today. EEG negative for seizure activity. - Objective Vital Signs & Weight: Vital Signs (12 hours) Temp Pulse Resp BP BP Pulse Ox 06/26/20 08:51 122/75 06/26/20 07:22 97.6 F 61 16 122/75 96 06/26/20 03:52 97.5 F L 63 14 123/77 100 Weight Admit Weight 182 lb 9.6 oz Weight 172 lb 8 oz I&O: 06/25/20 06/26/20 06/27/20 06:59 06:59 06:59 Intake Total 650 320 Output Total 600 300 Balance 50 20 Result Diagrams: 06/25/20 06:53 06/26/20 04:59 Additional Labs: Accuchecks 06/26/20 06/26/20 06/25/20 11:00 05:44 16:44 POC Glucose 121 H 99 94 Radiology Reviewed by me: Yes EKG Reviewed by me: Yes ROS - Review of Systems Constitutional: denies: fever, chills, sweats, weakness, malaise, other Eyes: denies: pain, vision change, conjunctivae inflammation, eyelid inflammation, redness, other ENT: denies: ear pain, ear discharge, nose pain, nose discharge, nose congestion, mouth pain, mouth swelling, throat pain, throat swelling, other Respiratory: denies: cough, dry, shortness of breath, hemoptysis, SOB with excertion, pleuritic pain, sputum, wheezing, other Cardiovascular: denies: no pertinent history, AFIB, CAD, CHF, HTN, NV, Syncope, Hyperlipidemia, Mitral valve stenosis, Aortic stenosis, Valve insufficiency, Pulmonary hypertension, Other Gastrointestinal: denies: nausea, vomiting, abdominal pain, diarrhea, constipation, melena, hematochezia, other Musculoskeletal: denies: neck pain, shoulder pain, arm pain, back pain, hand pain, leg pain, foot pain, other Skin: denies: rash, lesions, jonathan, bruising, other Neurological: denies: weakness, numbness, incoordination, change in speech, confusion, seizures, other - Medication Medications: Active Medications Generic Name Dose Route Start Last Admin Trade Name Freq PRN Reason Stop Dose Admin Acetaminophen 650 mg 06/24/20 21:00 09/18/20 08:50 Acetaminophen 325 Mg Tab PO 650 mg Q4H PRN Administration Headache/Fever/Mild Pain (1-3) Allopurinol 100 mg 06/25/20 09:00 06/26/20 08:50 Allopurinol 100 Mg Tab PO 100 mg DAILY ELISSA Administration Amlodipine Besylate 5 mg 06/25/20 09:00 06/26/20 08:51 Amlodipine 5 Mg Tab PO 5 mg DAILY ELISSA Administration Aspirin 81 mg 06/25/20 09:00 06/26/20 08:51 Aspirin 81 Mg Enteric Coated Tablet PO 81 mg DAILY ELISSA Administration Carvedilol 6.25 mg 06/25/20 09:00 06/26/20 08:51 Carvedilol 6.25 Mg Tab PO 6.25 mg BID ELISSA Administration Enoxaparin Sodium 40 mg 06/25/20 09:00 06/25/20 09:58 Enoxaparin Sodium 40 Mg/0.4 Ml Syringe SC 40 mg 0900 ELISSA Administration Pantoprazole Sodium 40 mg 06/25/20 09:00 06/26/20 08:51 Pantoprazole 40 Mg Tab PO 40 mg DAILY ELISSA Administration Polyethylene Glycol 17 gm 06/25/20 09:00 06/26/20 08:50 Polyethylene Glycol 3350 17 Gm Packet PO 17 gm DAILY ELISSA Administration Rosuvastatin Calcium 20 mg 06/25/20 21:00 06/25/20 22:00 Rosuvastatin 20 Mg Tab PO 20 mg HS ELISSA Administration - Exam General Appearance: awake alert Eye: PERRL ENT: normocephalic atraumatic Neck: supple Respiratory: CTAB Cardiovascular: RRR Gastrointestinal: soft Extremities: no cyanosis Skin: normal turgor Neurological: CN's grossly intact, no focal deficits, no new deficit Musculoskeletal: normal tone, normal strength, no muscle wasting PSYCH: normal affect, normal behavior, oriented to person, oriented to place Results - Labs Result Diagrams: 06/25/20 06:53 06/26/20 04:59 Lab results: WBC 4.7 thou/uL (4.8-10.8) L 06/25/20 06:53 Hgb 11.7 g/dL (12.0-16.0) L 06/25/20 06:53 Hct 34.4 % (36.0-47.0) L 06/25/20 06:53 MCV 93.5 fL (78.0-98.0) 06/25/20 06:53 Plt Count 229 thou/uL (130-400) 06/25/20 06:53 Neutrophils % 68.9 % (42.0-75.0) 06/25/20 06:53 Band Neuts % (Manual) 20 % (5-11) H 06/24/20 17:42 Sodium 131 mmol/L (136-145) L 06/26/20 04:59 Potassium 4.3 mmol/L (3.5-5.1) 06/26/20 04:59 Chloride 100 mmol/L (98-107) 06/26/20 04:59 Carbon Dioxide 19 mmol/L (23-31) L 06/26/20 04:59 BUN 13 mg/dL (9.8-20.1) 06/26/20 04:59 Creatinine 0.96 mg/dL (0.6-1.1) 06/26/20 04:59 Glucose 98 mg/dL (83-110) 06/26/20 04:59 Lactic Acid 1.2 mmol/L (0.5-2.2) 06/24/20 17:42 Calcium 9.2 mg/dL (7.8-10.44) 06/26/20 04:59 Total Bilirubin 0.3 mg/dL (0.2-1.2) 06/24/20 17:42 AST 16 U/L (5-34) 06/24/20 17:42 ALT 11 U/L (8-55) 06/24/20 17:42 Alkaline Phosphatase 92 U/L (40-110) 06/24/20 17:42 Creatine Kinase 129 U/L (29-168) 06/24/20 17:42 CK-MB (CK-2) 3.2 ng/mL (0-6.6) 06/24/20 17:42 Troponin I 0.059 ng/mL (< 0.028) H 06/24/20 23:52 Serum Total Protein 5.9 g/dL (6.0-8.3) L 06/24/20 17:42 Albumin 3.5 g/dL (3.4-4.8) 06/24/20 17:42 Urine Ketones Negative mg/dL (Negative) 06/24/20 23:00 Urine Blood Negative (Negative) 06/24/20 23:00 Urine Nitrite Negative (Negative) 06/24/20 23:00 Ur Leukocyte Esterase Negative Fredi/uL (Negative) 06/24/20 23:00 Urine RBC 4-6 HPF (0-3) A 06/24/20 23:00 Urine WBC 0-3 HPF (0-3) 06/24/20 23:00 Ur Squamous Epith Cells None Seen HPF (0-3) 06/24/20 23:00 Urine Bacteria Rare-Few HPF (None Seen) 06/24/20 23:00 - Radiology Interpretation CT scan - head Additional Comment: No acute intracranial pathology. PN A/P (1) AMS (altered mental status) Code(s): R41.82 - ALTERED MENTAL STATUS, UNSPECIFIED Status: Acute (2) TIA (transient ischemic attack) Code(s): G45.9 - TRANSIENT CEREBRAL ISCHEMIC ATTACK, UNSPECIFIED Status: Acute (3) Hyponatremia Code(s): E87.1 - HYPO-OSMOLALITY AND HYPONATREMIA Status: Acute (4) Bilateral hydronephrosis Code(s): N13.30 - UNSPECIFIED HYDRONEPHROSIS Status: Chronic (5) DMII (diabetes mellitus, type 2) Status: Chronic (6) HTN (hypertension) Code(s): I10 - ESSENTIAL (PRIMARY) HYPERTENSION Status: Chronic - Plan Daily Plan: PT/OT, speech therapy, DVT proph w/SCDs 89 year old with AMS, hyponatremia and focal neurological deficits whisch are not resolved. Most likely TIA. Altered mental status improved which is most likely due to metabolic etiology. Repeat HCT today since patient cannot have MRI Brain due to pacemaker. Continue aspirin and statin for secondary stroke prevention. CTA head and neck negative for hemodynamically significant stenosis. 2 D Echo completed in 05/2020. Results noted. Neurochecks every 4 hours. EEG reviewed and was negative for seizure actity. PT/OT/Speech Telemetry. Hyponatremia improving. Nephrology on board. Continue home medications. Continue medical management per primary team. CM on board regarding discharge planning. Case discussed during MDR rounds.
[2020-06-26] MEDS: Enoxaparin Sodium 40 MG/0.4 ML SYRINGE SC SCH (12:12)
--- NOTE | 2020-06-26 13:53 | CT ---
CT BRAIN WITHOUT CONTRAST: HISTORY:TIA COMPARISON:06/24/2020 FINDINGS: There are foci of decreased attenuation in the periventricular white matter, consistent with chronic small vessel ischemic disease. No evidence of acute infarct, hemorrhage, midline shift or abnormal extra-axial fluid collections is seen. The ventricular size is appropriate and the basilar cisterns are patent. The bony calvarium is intact. The visualized paranasal sinuses and mastoid air cells are well aerated. IMPRESSION: Stable exam. No CT evidence of acute intracranial process.
--- NOTE | 2020-06-26 14:41 | PDOC.HOSPP ---
- Subjective Encounter Date: 06/26/20 Subjective: Patient is doing very well. She has no particular complaints today. She fully understands that she was not right when she initially presented. She has good insight to that. Feels like she is at her baseline. - Objective Vital Signs & Weight: Vital Signs (12 hours) Temp Pulse Resp BP BP Pulse Ox 06/26/20 12:00 98.5 F 55 L 12 107/59 L 95 06/26/20 08:51 122/75 96 06/26/20 07:22 97.6 F 61 16 122/75 96 06/26/20 03:52 97.5 F L 63 14 123/77 100 Weight Admit Weight 182 lb 9.6 oz Weight 172 lb 8 oz I&O: 06/25/20 06/26/20 06/27/20 06:59 06:59 06:59 Intake Total 650 320 240 Output Total 600 300 200 Balance 50 20 40 Result Diagrams: 06/25/20 06:53 06/26/20 04:59 Additional Labs: Accuchecks 06/26/20 06/26/20 06/25/20 11:00 05:44 16:44 POC Glucose 121 H 99 94 Hospitalist ROS - Medication Medications: Active Medications Generic Name Dose Route Start Last Admin Trade Name Freq PRN Reason Stop Dose Admin Acetaminophen 650 mg 06/24/20 21:00 06/26/20 08:50 Acetaminophen 325 Mg Tab PO 650 mg Q4H PRN Administration Headache/Fever/Mild Pain (1-3) Allopurinol 100 mg 06/25/20 09:00 06/26/20 08:50 Allopurinol 100 Mg Tab PO 100 mg DAILY ELISSA Administration Amlodipine Besylate 5 mg 06/25/20 09:00 06/26/20 08:51 Amlodipine 5 Mg Tab PO 5 mg DAILY ELISSA Administration Aspirin 81 mg 06/25/20 09:00 06/26/20 08:51 Aspirin 81 Mg Enteric Coated Tablet PO 81 mg DAILY ELISSA Administration Carvedilol 6.25 mg 06/25/20 09:00 06/26/20 08:51 Carvedilol 6.25 Mg Tab PO 6.25 mg BID ELISSA Administration Enoxaparin Sodium 40 mg 06/25/20 09:00 06/26/20 12:12 Enoxaparin Sodium 40 Mg/0.4 Ml Syringe SC 40 mg 0900 ELISSA Administration Pantoprazole Sodium 40 mg 06/25/20 09:00 06/26/20 08:51 Pantoprazole 40 Mg Tab PO 40 mg DAILY ELISSA Administration Polyethylene Glycol 17 gm 06/25/20 09:00 06/26/20 08:50 Polyethylene Glycol 3350 17 Gm Packet PO 17 gm DAILY ELISSA Administration Rosuvastatin Calcium 20 mg 06/25/20 21:00 06/25/20 22:00 Rosuvastatin 20 Mg Tab PO 20 mg HS ELISSA Administration - Exam General Appearance: NAD, awake alert Heart: RRR, no murmur, no gallops, no rubs, normal peripheral pulses Respiratory: CTAB, no wheezes, no rales, no ronchi, normal chest expansion, no tachypnea, normal percussion Gastrointestinal: soft, non-tender, non-distended, normal bowel sounds, no palpable masses, no hepatomegaly, no splenomegaly, no bruit Extremities: no cyanosis, no clubbing, no edema Skin: normal turgor, no lesions, no rashes Neurological: no focal deficits Musculoskeletal: generalized weakness Psychiatric: normal affect, normal behavior, A&O x 3 Hosp A/P (1) TIA (transient ischemic attack) Code(s): G45.9 - TRANSIENT CEREBRAL ISCHEMIC ATTACK, UNSPECIFIED Status: Acute (2) Hyponatremia Code(s): E87.1 - HYPO-OSMOLALITY AND HYPONATREMIA Status: Acute (3) DMII (diabetes mellitus, type 2) Status: Chronic (4) HTN (hypertension) Code(s): I10 - ESSENTIAL (PRIMARY) HYPERTENSION Status: Chronic (5) Elevated troponin Code(s): R79.89 - OTHER SPECIFIED ABNORMAL FINDINGS OF BLOOD CHEMISTRY Status: Acute (6) Acute metabolic encephalopathy Code(s): G93.41 - METABOLIC ENCEPHALOPATHY Status: Acute - Plan TIA: Patient presented with some encephalopathy, aphasia, right-sided weakness. These all seem to have resolved at this time. She has a pacemaker therefore will not likely get an MRI. PT OT and speech therapy consults completed. Neurology consult. Repeat CT of the head shows no evidence of new findings. Continue aspirin and statin. Of note the patient had an echo in May. Hyponatremia: Patient has had a history of hyponatremia. At her most recent discharge her number was 128. Unclear if this could be related to her neurologic symptoms. She initially received IV fluids. Her sodium did improve with that. Continues to improve somewhat. Nephrology following. She is up to 131. If she continues to do well by tomorrow would consider discharge. Sick sinus syndrome: Recent pacemaker placement. Will interrogate. Elevated troponins: Likely not representing either acute NSTEMI or demand ischemia but may more likely be related to pacemaker placement. Cardiology suspects this is related to recent stroke and not related to cardiac issues. Diabetes mellitus: Sliding scale insulin, Accu-Cheks, diabetic diet. Acute metabolic encephalopathy: Likely related to potential TIA. Appears to be resolved. DVT prophylaxis: Lovenox PUD prophylaxis: Pantoprazole.
--- NOTE | 2020-06-26 19:36 | PRG ---
DATE OF SERVICE: 06/26/2020 SUBJECTIVE: The patient was seen and examined, noted with the following vital signs. OBJECTIVE: VITAL SIGNS: Afebrile, temperature 97.8, pulse 60, respiratory rate of 16, O2 saturations were 93%, blood pressure 121/69. HEENT: Unremarkable. CARDIOVASCULAR SYSTEM: First and second heart sounds were heard. RESPIRATORY SYSTEM: Clear to auscultation. DIGESTIVE SYSTEM: Revealed a benign abdomen. Positive bowel sounds. EXTREMITIES: No peripheral edema. SKIN: No new gross rash. LYMPHATICS: No peripheral lymphadenopathy. LABORATORY INVESTIGATION: Showed sodium has gone up to 131. IMPRESSION: Hyponatremia, likely in the context of intake. PLAN: Continue current conservative management. Job ID: [id number]
[2020-06-26] MEDS: Rosuvastatin 20 MG TAB PO SCH (22:04)
[2020-06-27] MEDS: Aspirin 81 mg Enteric Coated Tablet PO SCH (11:02)
[2020-06-27] MEDS: Carvedilol 6.25 MG TAB PO SCH ×2 (11:03→21:03)
[2020-06-27] MEDS: Amlodipine 5 MG TAB PO SCH (11:03)
[2020-06-27] MEDS: Enoxaparin Sodium 40 MG/0.4 ML SYRINGE SC SCH (11:04)
[2020-06-27] MEDS: Allopurinol 100 MG TAB PO SCH (11:04)
[2020-06-27] MEDS: Polyethylene Glycol 3350 17 GM Packet PO SCH (11:05)
--- NOTE | 2020-06-27 12:02 | PDOC.HOSPP ---
- Subjective Encounter Date: 06/27/20 Encounter Time: :20 - Objective Vital Signs & Weight: Vital Signs (12 hours) Temp Pulse Pulse Pulse Resp BP BP 06/27/20 11:03 59 L 147/80 H 06/27/20 11:00 97.9 F 62 12 06/27/20 09:14 63 62 126/67 06/27/20 08:50 97.7 F 63 18 06/27/20 04:44 97.7 F 63 16 BP BP Pulse Ox 06/27/20 11:03 06/27/20 11:00 147/80 H 100 06/27/20 09:14 139/78 06/27/20 08:50 118/64 96 06/27/20 04:44 134/78 99 Weight Admit Weight 182 lb 9.6 oz Weight 171 lb 3.2 oz I&O: 06/26/20 06/27/20 06/28/20 06:59 06:59 06:59 Intake Total 320 890 Output Total 300 200 Balance 20 690 Result Diagrams: 06/25/20 06:53 06/26/20 04:59 Additional Labs: Accuchecks 06/27/20 06/27/20 06/26/20 11:31 06:17 20:37 POC Glucose 113 H 105 H 109 H 06/26/20 16:43 POC Glucose 95 Hospitalist ROS - Medication Medications: Active Medications Generic Name Dose Route Start Last Admin Trade Name Freq PRN Reason Stop Dose Admin Acetaminophen 650 mg 06/24/20 21:00 06/26/20 08:50 Acetaminophen 325 Mg Tab PO 650 mg Q4H PRN Administration Headache/Fever/Mild Pain (1-3) Allopurinol 100 mg 06/25/20 09:00 06/27/20 11:04 Allopurinol 100 Mg Tab PO 100 mg DAILY ELISSA Administration Amlodipine Besylate 5 mg 06/25/20 09:00 06/27/20 11:03 Amlodipine 5 Mg Tab PO 5 mg DAILY ELISSA Administration Aspirin 81 mg 06/25/20 09:00 06/27/20 11:02 Aspirin 81 Mg Enteric Coated Tablet PO 81 mg DAILY ELISSA Administration Carvedilol 6.25 mg 06/25/20 09:00 06/27/20 11:03 Carvedilol 6.25 Mg Tab PO 6.25 mg BID ELISSA Administration Enoxaparin Sodium 40 mg 06/25/20 09:00 06/27/20 11:04 Enoxaparin Sodium 40 Mg/0.4 Ml Syringe SC 40 mg 0900 ELISSA Administration Pantoprazole Sodium 40 mg 06/25/20 09:00 06/27/20 11:03 Pantoprazole 40 Mg Tab PO 40 mg DAILY ELISSA Administration Polyethylene Glycol 17 gm 06/25/20 09:00 06/27/20 11:05 Polyethylene Glycol 3350 17 Gm Packet PO 17 gm DAILY ELISSA Administration Rosuvastatin Calcium 20 mg 06/25/20 21:00 06/26/20 22:04 Rosuvastatin 20 Mg Tab PO 20 mg HS ELISSA Administration Hosp A/P - Plan R hemiparesis Metabolic encephalopathy, aphasia, - Tcontra for MRI - [pacer] -. PT OT and speech therapy consults completed. N - eurology consult. -Repeat CT of the head shows no evidence of new findings. - aspirin and statin. - echo done in May. Shows EF of 55% with moderate left ventricular hypertrophy and moderate mitral regurgitation mild aortic stenosis and mild aortic regurgitation. Hyponatremia: -Sodium 131 yesterday. No labs today will get that one. Sick sinus syndrome: Recent pacemaker placement. Elevated troponins: -Cardiology suspects this is related to recent stroke and not related to cardiac issues. Diabetes mellitus: Sliding scale insulin, Accu-Cheks, diabetic diet.
[2020-06-27 13:08] LABS: #Eosinphils 0.1 thou/uL (0.0-0.7); #Lymphocytes 1.2 thou/uL (1.20-3.40); #Monocytes 0.7 thou/uL (0.11-0.59); #Neutrophils 3.3 thou/uL (1.40-6.50); %Basophils 0.6 % (0.0-1.0); %Eosinophils 1.1 % (0.0-10.0); %Lymphocytes 22.7 % (21.0-51.0); %Monocytes 12.9 % (0.0-10.0); %Neutrophils 62.8 % (42.0-75.0); Mean Corpuscular HGB CONC 32.8 g/dL (32.0-36.0); Mean Corpuscular Hemoglobin 30.6 pg (27.0-31.0); Mean Corpuscular Volume 93.4 fL (78.0-98.0); Mean Platelet Volume 7.3 fL (7.4-10.4); Platelet Count 270 thou/uL (130-400); RBC Distribution Width 12.4 % (11.5-14.5); Red Blood Cell (RBC) Count 3.94 mill/uL (4.20-5.40); White Blood Cell (WBC) Count 5.2 thou/uL (4.8-10.8)
[2020-06-27 13:16] LABS: Anion Gap 16 mmol/L (10-20); BUN (Urea Nitrogen) 13 mg/dL (9.8-20.1); Calc. Creatinine Clearance 47 mL/min (70-130); Calcium 9.2 mg/dL (7.8-10.44); Carbon Dioxide 21 mmol/L (23-31); Chloride 101 mmol/L (98-107); Estimated GFR-MDRD 62; Glucose 96 mg/dL (83-110); Potassium 4.4 mmol/L (3.5-5.1); Sodium 134 mmol/L (136-145)
[2020-06-27] MEDS: Ondansetron PF 4 MG/2 ML Vial IVP PRN (19:24)
[2020-06-27] MEDS: Rosuvastatin 20 MG TAB PO SCH (21:03)
--- NOTE | 2020-06-27 23:47 | PRG ---
DATE OF SERVICE: 06/27/2020 SUBJECTIVE: The patient seen and examined with no new complaint noted with the following vital signs. OBJECTIVE: VITAL SIGNS: Afebrile, temperature 97.8, pulse 66, respiratory rate of , O2 saturations 97% with a blood pressure of 116/87. HEENT: Unremarkable. CARDIOVASCULAR: First and second heart sounds were heard. RESPIRATORY: Clear to auscultation. DIGESTIVE: Revealed a benign abdomen with positive bowel sounds. EXTREMITIES: No peripheral edema. SKIN: No new gross rash. LYMPHATICS: No peripheral lymphadenopathy. LABORATORY INVESTIGATION: Showed sodium that has gone up to 134. IMPRESSION: Hyponatremia, more or less in the context of osmolar intake. PLAN: 1. Continue increased osmolar intake. 2. Further management to be dependent on the clinical course. Job ID: [id number]
[2020-06-28 04:20] VITALS: BMI 22.3
[2020-06-28] MEDS: Polyethylene Glycol 3350 17 GM Packet PO SCH (08:04)
[2020-06-28] MEDS: Allopurinol 100 MG TAB PO SCH (08:04)
[2020-06-28] MEDS: Aspirin 81 mg Enteric Coated Tablet PO SCH (08:04)
[2020-06-28] MEDS: Enoxaparin Sodium 40 MG/0.4 ML SYRINGE SC SCH (08:04)
[2020-06-28] MEDS: Carvedilol 6.25 MG TAB PO SCH ×2 (08:05→21:05)
[2020-06-28] MEDS: Amlodipine 5 MG TAB PO SCH (08:06)
--- NOTE | 2020-06-28 11:52 | PDOC.HOSPP ---
- Subjective Encounter Date: 06/28/20 Encounter Time: : Subjective: Patient has mild hard of hearing. She is able to lift her right arm no significant weakness noted. We discussed about the discharge plan. She is willing to go to the rehab when we are ready. Sodium is improved. - Objective Vital Signs & Weight: Vital Signs (12 hours) Temp Pulse Resp BP BP BP Pulse Ox 06/28/20 08:06 66 136/82 06/28/20 08:05 136/82 06/28/20 08:04 98 06/28/20 07:45 97.4 F L 62 20 153/85 H 97 06/28/20 04:15 97.5 F L 64 14 116/79 97 Weight Admit Weight 182 lb 9.6 oz Weight 169 lb 4.8 oz I&O: 06/27/20 06/28/20 06/29/20 06:59 06:59 06:59 Intake Total 890 720 360 Output Total 200 Balance 690 720 360 Result Diagrams: 06/27/20 12:41 06/27/20 12:41 Additional Labs: Accuchecks 06/28/20 06/28/20 06/27/20 10:56 05:23 16:51 POC Glucose 101 H 141 H 127 H Hospitalist ROS - Medication Medications: Active Medications Generic Name Dose Route Start Last Admin Trade Name Freq PRN Reason Stop Dose Admin Acetaminophen 650 mg 06/24/20 21:00 06/26/20 08:50 Acetaminophen 325 Mg Tab PO 650 mg Q4H PRN Administration Headache/Fever/Mild Pain (1-3) Allopurinol 100 mg 06/25/20 09:00 06/28/20 08:04 Allopurinol 100 Mg Tab PO 100 mg DAILY ELISSA Administration Amlodipine Besylate 5 mg 06/25/20 09:00 06/28/20 08:06 Amlodipine 5 Mg Tab PO 5 mg DAILY ELISSA Administration Aspirin 81 mg 06/25/20 09:00 06/28/20 08:04 Aspirin 81 Mg Enteric Coated Tablet PO 81 mg DAILY ELISSA Administration Carvedilol 6.25 mg 06/25/20 09:00 06/28/20 08:05 Carvedilol 6.25 Mg Tab PO 6.25 mg BID ELISSA Administration Enoxaparin Sodium 40 mg 06/25/20 09:00 06/28/20 08:04 Enoxaparin Sodium 40 Mg/0.4 Ml Syringe SC 40 mg 0900 ELISSA Administration Ondansetron HCl 4 mg 06/24/20 21:00 06/27/20 19:24 Ondansetron Pf 4 Mg/2 Ml Vial IVP 4 mg Q6H PRN Administration Nausea/Vomiting use 1st Pantoprazole Sodium 40 mg 06/25/20 09:00 06/28/20 08:03 Pantoprazole 40 Mg Tab PO 40 mg DAILY ELISSA Administration Polyethylene Glycol 17 gm 06/25/20 09:00 06/28/20 08:04 Polyethylene Glycol 3350 17 Gm Packet PO 17 gm DAILY ELISSA Administration Rosuvastatin Calcium 20 mg 06/25/20 21:00 06/27/20 21:03 Rosuvastatin 20 Mg Tab PO 20 mg HS ELISSA Administration Sodium Chloride 10 ml 06/24/20 21:02 06/27/20 21:03 Flush - Normal Saline 10 Ml Syringe IVF 10 ml PRN PRN Administration Saline Flush - Exam General Appearance: NAD, awake alert Eye: PERRL ENT: normocephalic atraumatic Neck: supple Heart: RRR Respiratory: CTAB, normal chest expansion Gastrointestinal: soft, normal bowel sounds Neurological: no focal deficits Psychiatric: A&O x 3 Hosp A/P - Plan R hemiparesis--improved Metabolic encephalopathy, -------------------> resolved aphasia, --------------------> resolved - contra for MRI - [pacer] -. PT OT and speech therapy consults completed. N - Neurology consult. -Repeat CT of the head shows no evidence of new findings. - aspirin and statin. - echo done in May. Shows EF of 55% with moderate left ventricular hypertrophy and moderate mitral regurgitation mild aortic stenosis and mild aortic regurgitation. Hyponatremia: -Sodium 131 yesterday. No labs today will get that one. Sodium is improved. 134 on Sick sinus syndrome: Recent pacemaker placement. Elevated troponins: -Cardiology suspects this is related to recent stroke and not related to cardiac issues. Diabetes mellitus: Sliding scale insulin, Accu-Cheks, diabetic diet. We discussed about the discharge plan. She is willing to go to the rehab. PT OT and catalytic case operator consult placed.
--- NOTE | 2020-06-28 19:34 | PRG ---
DATE OF SERVICE: 06/28/2020 SUBJECTIVE: The patient is seen and examined, noted with the following vital signs. OBJECTIVE: VITAL SIGNS: Afebrile, temperature 97.6, pulse 60, respiratory rate of 20, O2 saturations of 100%, and blood pressure 140/76. HEENT: Unremarkable. CARDIOVASCULAR SYSTEM: First and second heart sounds were heard. RESPIRATORY SYSTEM: Clear to auscultation. DIGESTIVE SYSTEM: Revealed a benign abdomen. Positive bowel sounds. EXTREMITIES: No peripheral edema. SKIN: No new gross rash. LYMPHATICS: No peripheral lymphadenopathy. IMPRESSION: Hyponatremia, which is much improved. PLAN: 1. Continue current renal conservative measures. 2. Further management to be dependent on the clinical course. Job ID: [id number]
[2020-06-28] MEDS: Rosuvastatin 20 MG TAB PO SCH (21:05)
[2020-06-28] MEDS: Senokot 8.6 MG TAB PO PRN (22:59)
[2020-06-29] MEDS: Allopurinol 100 MG TAB PO SCH (09:25)
[2020-06-29] MEDS: Carvedilol 6.25 MG TAB PO SCH ×2 (09:26→20:17)
[2020-06-29] MEDS: Aspirin 81 mg Enteric Coated Tablet PO SCH (09:26)
[2020-06-29] MEDS: Enoxaparin Sodium 40 MG/0.4 ML SYRINGE SC SCH (09:26)
[2020-06-29] MEDS: Amlodipine 5 MG TAB PO SCH (09:26)
[2020-06-29] MEDS: Polyethylene Glycol 3350 17 GM Packet PO SCH (09:26)
[2020-06-29] MEDS: Senokot 8.6 MG TAB PO PRN (09:27)
--- NOTE | 2020-06-29 12:00 | PDOC.HOSPP ---
- Subjective Encounter Date: 06/29/20 Encounter Time: 09:15 Subjective: She needs walking in the hallway with a walker. Physical therapy nearby. Talk to the pillowcase folder regarding her home situation. Patient lives alone. She would benefit with a transient rehab. She does have a Medicare. - Objective Vital Signs & Weight: Vital Signs (12 hours) Temp Pulse Resp BP BP BP Pulse Ox 06/29/20 11:37 98.0 F 62 18 121/68 97 06/29/20 09:26 65 136/82 06/29/20 07:30 97.7 F 65 18 152/83 H 100 06/29/20 03:37 97.9 F 61 12 130/79 99 06/29/20 00:00 97.9 F 60 14 152/80 H 98 Weight Admit Weight 182 lb 9.6 oz Weight 167 lb 14.4 oz I&O: 06/28/20 06/29/20 06/30/20 06:59 06:59 06:59 Intake Total 720 1080 Balance 720 1080 Result Diagrams: 06/27/20 12:41 06/27/20 12:41 Additional Labs: Accuchecks 06/29/20 06/29/20 06/28/20 10:46 04:42 21:13 POC Glucose 133 H 100 142 H Hospitalist ROS - Medication Medications: Active Medications Generic Name Dose Route Start Last Admin Trade Name Freq PRN Reason Stop Dose Admin Acetaminophen 650 mg 06/24/20 21:00 06/26/20 08:50 Acetaminophen 325 Mg Tab PO 650 mg Q4H PRN Administration Headache/Fever/Mild Pain (1-3) Allopurinol 100 mg 06/25/20 09:00 06/29/20 09:25 Allopurinol 100 Mg Tab PO 100 mg DAILY ELISSA Administration Amlodipine Besylate 5 mg 06/25/20 09:00 06/29/20 09:26 Amlodipine 5 Mg Tab PO 5 mg DAILY ELISSA Administration Aspirin 81 mg 06/25/20 09:00 06/29/20 09:26 Aspirin 81 Mg Enteric Coated Tablet PO 81 mg DAILY ELISSA Administration Carvedilol 6.25 mg 06/25/20 09:00 06/29/20 09:26 Carvedilol 6.25 Mg Tab PO 6.25 mg BID ELISSA Administration Enoxaparin Sodium 40 mg 06/25/20 09:00 06/29/20 09:26 Enoxaparin Sodium 40 Mg/0.4 Ml Syringe SC 40 mg 0900 ELISSA Administration Ondansetron HCl 4 mg 06/24/20 21:00 06/27/20 19:24 Ondansetron Pf 4 Mg/2 Ml Vial IVP 4 mg Q6H PRN Administration Nausea/Vomiting use 1st Pantoprazole Sodium 40 mg 06/25/20 09:00 06/29/20 09:26 Pantoprazole 40 Mg Tab PO 40 mg DAILY ELISSA Administration Polyethylene Glycol 17 gm 06/25/20 09:00 06/29/20 09:26 Polyethylene Glycol 3350 17 Gm Packet PO 17 gm DAILY ELISSA Administration Rosuvastatin Calcium 20 mg 06/25/20 21:00 06/28/20 21:05 Rosuvastatin 20 Mg Tab PO 20 mg HS ELISSA Administration Senna 2 tab 06/28/20 22:34 06/29/20 09:27 Senokot 8.6 Mg Tab PO 2 tab HSPRN PRN Administration Constipation Sodium Chloride 10 ml 06/24/20 21:02 06/28/20 21:05 Flush - Normal Saline 10 Ml Syringe IVF 10 ml PRN PRN Administration Saline Flush - Exam General Appearance: NAD, awake alert Eye: PERRL ENT: normocephalic atraumatic Neck: supple Heart: RRR, normal peripheral pulses Respiratory: CTAB, normal chest expansion Gastrointestinal: soft, normal bowel sounds Neurological: no new deficit, hemiplegia Neurological - other findings: Right-sided weakness improved. Psychiatric: A&O x 3 Hosp A/P - Plan R hemiparesis--improved Metabolic encephalopathy, -------------------> resolved aphasia, --------------------> resolved - contra for MRI - [pacer] -. PT OT and speech therapy consults completed. N - Neurology consult. -Repeat CT of the head shows no evidence of new findings. - aspirin and statin. - echo done in May. Shows EF of 55% with moderate left ventricular hypertrophy and moderate mitral regurgitation mild aortic stenosis and mild aortic regurgitation. Hyponatremia: -Sodium 131 yesterday. No labs today will get that one. Sodium is improved. 134 on Sick sinus syndrome: Recent pacemaker placement. Elevated troponins: -Cardiology suspects this is related to recent stroke and not related to cardiac issues. Diabetes mellitus: Sliding scale insulin, Accu-Cheks, diabetic diet. We discussed about the discharge plan. She is willing to go to the rehab. PT OT and pillowcase folder consult placed. Will check whether rehab would take her with her insurance. If that is not feasible then will arrange for home health.
--- NOTE | 2020-06-29 13:40 | PDOC.NEUPN ---
- Subjective Encounter Date: 06/29/20 Subjective: Patient feels better. No new complaints. - Objective Vital Signs & Weight: Vital Signs (12 hours) Temp Pulse Resp BP BP BP Pulse Ox 06/29/20 11:37 98.0 F 62 18 121/68 97 06/29/20 09:26 65 136/82 06/29/20 07:30 97.7 F 65 18 152/83 H 100 06/29/20 03:37 97.9 F 61 12 130/79 99 Weight Admit Weight 182 lb 9.6 oz Weight 167 lb 14.4 oz I&O: 06/28/20 06/29/20 06/30/20 06:59 06:59 06:59 Intake Total 720 1080 Balance 720 1080 Result Diagrams: 06/27/20 12:41 06/27/20 12:41 Additional Labs: Accuchecks 06/29/20 06/29/20 06/28/20 10:46 04:42 21:13 POC Glucose 133 H 100 142 H 06/28/20 06/27/20 16:43 20:19 POC Glucose 105 H 113 H Radiology Reviewed by me: Yes EKG Reviewed by me: Yes ROS - Review of Systems Constitutional: denies: fever, chills, sweats, weakness, malaise, other ENT: denies: ear pain, ear discharge, nose pain, nose discharge, nose congestion, mouth pain, mouth swelling, throat pain, throat swelling, other Respiratory: denies: cough, dry, shortness of breath, hemoptysis, SOB with excertion, pleuritic pain, sputum, wheezing, other Cardiovascular: denies: no pertinent history, AFIB, CAD, CHF, HTN, OH, Syncope, Hyperlipidemia, Mitral valve stenosis, Aortic stenosis, Valve insufficiency, Pulmonary hypertension, Other Gastrointestinal: denies: nausea, vomiting, abdominal pain, diarrhea, constipation, melena, hematochezia, other Genitourinary: denies: dysuria, frequency, incontinence, hematuria, retention, other Musculoskeletal: denies: neck pain, shoulder pain, arm pain, back pain, hand pain, leg pain, foot pain, other Skin: denies: rash, lesions, jonathan, bruising, other Neurological: denies: weakness, numbness, incoordination, change in speech, confusion, seizures, other - Medication Medications: Active Medications Generic Name Dose Route Start Last Admin Trade Name Freq PRN Reason Stop Dose Admin Acetaminophen 650 mg 06/24/20 21:00 06/26/20 08:50 Acetaminophen 325 Mg Tab PO 650 mg Q4H PRN Administration Headache/Fever/Mild Pain (1-3) Allopurinol 100 mg 06/25/20 09:00 06/29/20 09:25 Allopurinol 100 Mg Tab PO 100 mg DAILY ELISSA Administration Amlodipine Besylate 5 mg 06/25/20 09:00 06/29/20 09:26 Amlodipine 5 Mg Tab PO 5 mg DAILY ELISSA Administration Aspirin 81 mg 06/25/20 09:00 06/29/20 09:26 Aspirin 81 Mg Enteric Coated Tablet PO 81 mg DAILY ELISSA Administration Carvedilol 6.25 mg 06/25/20 09:00 06/29/20 09:26 Carvedilol 6.25 Mg Tab PO 6.25 mg BID ELISSA Administration Enoxaparin Sodium 40 mg 06/25/20 09:00 06/29/20 09:26 Enoxaparin Sodium 40 Mg/0.4 Ml Syringe SC 40 mg 899 ELISSA Administration Ondansetron HCl 4 mg 06/24/20 21:00 06/27/20 19:24 Ondansetron Pf 4 Mg/2 Ml Vial IVP 4 mg Q6H PRN Administration Nausea/Vomiting use 1st Pantoprazole Sodium 40 mg 06/25/20 09:00 06/29/20 09:26 Pantoprazole 40 Mg Tab PO 40 mg DAILY ELISSA Administration Polyethylene Glycol 17 gm 06/25/20 09:00 06/29/20 09:26 Polyethylene Glycol 3350 17 Gm Packet PO 17 gm DAILY ELISSA Administration Rosuvastatin Calcium 20 mg 06/25/20 21:00 06/28/20 21:05 Rosuvastatin 20 Mg Tab PO 20 mg HS ELISSA Administration Senna 2 tab 06/28/20 22:34 06/29/20 09:27 Senokot 8.6 Mg Tab PO 2 tab HSPRN PRN Administration Constipation Sodium Chloride 10 ml 06/24/20 21:02 06/28/20 21:05 Flush - Normal Saline 10 Ml Syringe IVF 10 ml PRN PRN Administration Saline Flush - Exam General Appearance: awake alert Eye: PERRL, anicteric sclera ENT: normocephalic atraumatic Neck: supple Respiratory: CTAB Cardiovascular: RRR Gastrointestinal: soft Extremities: no cyanosis Skin: normal turgor Neurological: CN's grossly intact, normal sensation to touch, no new deficit Musculoskeletal: normal tone, normal strength, no muscle wasting PSYCH: normal affect, normal behavior, A&O x 3, oriented to person, oriented to place, oriented to time Results - Labs Result Diagrams: 06/27/20 12:41 06/27/20 12:41 Lab results: WBC 5.2 thou/uL (4.8-10.8) 06/27/20 12:41 Hgb 12.0 g/dL (12.0-16.0) 06/27/20 12:41 Hct 36.7 % (36.0-47.0) 06/27/20 12:41 MCV 93.4 fL (78.0-98.0) 06/27/20 12:41 Plt Count 270 thou/uL (130-400) 06/27/20 12:41 Neutrophils % 62.8 % (42.0-75.0) 06/27/20 12:41 Band Neuts % (Manual) 20 % (5-11) H 06/24/20 17:42 Sodium 134 mmol/L (136-145) L 06/27/20 12:41 Potassium 4.4 mmol/L (3.5-5.1) 06/27/20 12:41 Chloride 101 mmol/L (98-107) 06/27/20 12:41 Carbon Dioxide 21 mmol/L (23-31) L 06/27/20 12:41 BUN 13 mg/dL (9.8-20.1) 06/27/20 12:41 Creatinine 1.02 mg/dL (0.6-1.1) 06/27/20 12:41 Glucose 96 mg/dL (83-110) 06/27/20 12:41 Lactic Acid 1.2 mmol/L (0.5-2.2) 06/24/20 17:42 Calcium 9.2 mg/dL (7.8-10.44) 06/27/20 12:41 Total Bilirubin 0.3 mg/dL (0.2-1.2) 06/24/20 17:42 AST 16 U/L (5-34) 06/24/20 17:42 ALT 11 U/L (8-55) 06/24/20 17:42 Alkaline Phosphatase 92 U/L (40-110) 06/24/20 17:42 Creatine Kinase 129 U/L (29-168) 06/24/20 17:42 CK-MB (CK-2) 3.2 ng/mL (0-6.6) 06/24/20 17:42 Troponin I 0.059 ng/mL (< 0.028) H 06/24/20 23:52 Serum Total Protein 5.9 g/dL (6.0-8.3) L 06/24/20 17:42 Albumin 3.5 g/dL (3.4-4.8) 06/24/20 17:42 Urine Ketones Negative mg/dL (Negative) 06/24/20 23:00 Urine Blood Negative (Negative) 06/24/20 23:00 Urine Nitrite Negative (Negative) 06/24/20 23:00 Ur Leukocyte Esterase Negative Fredi/uL (Negative) 06/24/20 23:00 Urine RBC 4-6 HPF (0-3) A 06/24/20 23:00 Urine WBC 0-3 HPF (0-3) 06/24/20 23:00 Ur Squamous Epith Cells None Seen HPF (0-3) 06/24/20 23:00 Urine Bacteria Rare-Few HPF (None Seen) 06/24/20 23:00 PN A/P (1) AMS (altered mental status) Code(s): R41.82 - ALTERED MENTAL STATUS, UNSPECIFIED Status: Acute (2) TIA (transient ischemic attack) Code(s): G45.9 - TRANSIENT CEREBRAL ISCHEMIC ATTACK, UNSPECIFIED Status: Acute (3) Hyponatremia Code(s): E87.1 - HYPO-OSMOLALITY AND HYPONATREMIA Status: Acute (4) Bilateral hydronephrosis Code(s): N13.30 - UNSPECIFIED HYDRONEPHROSIS Status: Chronic (5) DMII (diabetes mellitus, type 2) Status: Chronic (6) HTN (hypertension) Code(s): I10 - ESSENTIAL (PRIMARY) HYPERTENSION Status: Chronic - Plan Daily Plan: PT/OT, speech therapy 89 year old with AMS, hyponatremia and focal neurological deficits which are not resolved. Most likely TIA. Altered mental status improved which is most likely due to metabolic etiology. Repeat HCT since patient cannot have MRI Brain due to pacemaker is negative for intracranial process. Continue aspirin and statin for secondary stroke prevention. CTA head and neck negative for hemodynamically significant stenosis. 2 D Echo completed in 05/2020. Results noted. Neurochecks every 4 hours. EEG reviewed and was negative for seizure actity. PT/OT/Speech Telemetry. Hyponatremia improving. Nephrology on board. Continue home medications. Continue medical management per primary team. CM on board regarding discharge planning. Case discussed during MDR rounds.
--- NOTE | 2020-06-29 17:28 | PRG ---
DATE OF SERVICE: 06/29/2020 SUBJECTIVE: The patient was seen and examined, noted with the following vital signs. OBJECTIVE: VITAL SIGNS: Afebrile, temperature 97.8, pulse 60, respiratory rate of 16, O2 saturations of 96%, and blood pressure 143/77. HEENT: Unremarkable. CARDIOVASCULAR: First and second heart sounds were heard. RESPIRATORY: Clear to auscultation. DIGESTIVE: Revealed a benign abdomen. Positive bowel sounds. EXTREMITIES: No peripheral edema. SKIN: No new gross rash. LYMPHATICS: No peripheral lymphadenopathy. IMPRESSION: Hyponatremia, which seems to have improved at this point. PLAN: We will continue current management. Job ID: [id number]
[2020-06-29] MEDS: Ondansetron PF 4 MG/2 ML Vial IVP PRN (17:55)
[2020-06-29] MEDS: Rosuvastatin 20 MG TAB PO SCH (20:17)
[2020-06-30] MEDS: Aspirin 81 mg Enteric Coated Tablet PO SCH (08:18)
[2020-06-30] MEDS: Enoxaparin Sodium 40 MG/0.4 ML SYRINGE SC SCH (08:18)
[2020-06-30] MEDS: Carvedilol 6.25 MG TAB PO SCH (08:18)
[2020-06-30] MEDS: Polyethylene Glycol 3350 17 GM Packet PO SCH (08:18)
[2020-06-30] MEDS: Amlodipine 5 MG TAB PO SCH (08:18)
[2020-06-30] MEDS: Allopurinol 100 MG TAB PO SCH (08:18)
[2020-06-30 12:04] VITALS: BP 104/64; TEMP 97.9
--- NOTE | 2020-06-30 14:08 | DIS ---
DATE OF ADMISSION: 06/25/2020 DATE OF DISCHARGE: 06/30/2020 DISCHARGE DIAGNOSES: 1. Right hemiparesis, that is improved. 2. Metabolic encephalopathy, resolved. 3. Aphasia, that is resolved. 4. Hyponatremia, improved. 5. History of sick sinus syndrome, recent pacemaker placement. 6. Abnormal troponin secondary to metabolic mismatch, demand ischemia, and related to the recent stroke and not related to any cardiac issues. 7. Type 2 diabetes mellitus. CONSULTS: With Cardiology as well as Neurology. MEDICATIONS: 1. Crestor 20 mg at bedtime. 2. Allopurinol 100 mg daily. 3. Omeprazole 20 mg daily. 4. Coreg 6.25 mg twice a day. 5. Aspirin 81 mg daily. 6. Lasix 20 mg daily. 7. Metformin 1000 mg twice a day. 8. Lisinopril 10 mg daily. PHYSICAL EXAMINATION: VITAL SIGNS: On the day of discharge, temperature 97.9, pulse 66, blood pressure is 104/64, and saturating 98% on room air. GENERAL: The patient is alert, oriented x4. She is resting, in no acute distress. I explained the discharge plan to the rehab. She is agreeable with that. CARDIOVASCULAR: Regular rate and rhythm without murmurs, rubs, or gallops. LUNGS: Clear to auscultation bilaterally without wheezing, rales, or rhonchi. ABDOMEN: Soft, nontender, nondistended. Good bowel sounds. EXTREMITIES: Without any pitting edema. PERTINENT LABORATORY DATA: Her creatinine is 1.02 with the last check. Her sodium is 134 on 19th. Her hemoglobin is 12 and platelets are 270,000. WBC is 5.2 on the last draw. Her LDL is 100. TSH is in the normal range. HOSPITAL COURSE: This is a 89-year-old female, admitted with right hemiparesis and metabolic encephalopathy and aphasia. Her weakness is improved. She is able to communicate and have good comprehension. She had mild hyponatremia that is improved from 121 to 134 prior to discharge. That also contributed to her metabolic encephalopathy. She improved. Cardiology involved due to abnormal troponin, and review suggested that she does not require any aggressive intervention. We can get the MRA for a stroke workup on her as she has a pacemaker placement for her sick sinus syndrome. She had a CT scan as well as a CT angiogram. CT angiogram of the head and neck showed no acute findings. With this intervention, she reached maximum benefit during this hospitalization. The patient lives alone. Even though her weakness is improved, she would benefit with going to the rehab with the fact that she has no immediate family support while she is at home. With that intention, she is discharged to the rehab for a transient stay. DISCHARGE INSTRUCTIONS: Activity as tolerated with supervision. Diabetic diet. Follow up with primary care physician in 1 week. TIME SPENT: Discharge time took over 35 minutes. Job ID: [id number] [facility]
--- NOTE | 2020-06-30 16:34 | CT ---
CT angiogram head CT angiogram neck: 06/24/2020 COMPARISON: None HISTORY: Acute stroke protocol, right-sided weakness, aphasia TECHNIQUE: Axial CT imaging at 1.25 mm intervals from the vertex through the lung apices with IV cont rast using CT angiogram protocol. Coronal and sagittal 3-D reformatted imaging obtained. FINDINGS: The visualized lung apices demonstrate no acute findings. Incompletely imaged transvenous p acing device present. The retroantral fat, parapharyngeal fat, bilateral parotid and submandibular glands, bilateral tonsil lar pillars, epiglottis and preepiglottic fat, hyoid bone, thyroid cartilage, cricoid cartilage, thyroid gland, and level of the glottis appear grossly unremarkable. No lymphadenopathy is noted with in the neck. The origin of the innominate artery, right common carotid artery, right subclavian artery, left commo n carotid artery, and left subclavian artery unremarkable. There is mild stenosis at the origin of bilateral vertebral arteries. The vertebral arteries are patent bilaterally. On the basis of NASCET criteria, there is no hemodynamically significant stenosis involving the commo n carotid artery or internal carotid artery on either side. The basilar artery and its branches appear patent. The A1 segment and the distal FÉLIX branches appear grossly unremarkable bilaterally. The M1 segment, t he ICA bifurcation, and the MCA bifurcation appear grossly unremarkable bilaterally. No saccular aneurysm, high-grade stenosis, or central vascular occlusion is noted. Review of the osseous structures demonstrates no acute findings. IMPRESSION: No acute findings on CT angiography of the head and neck. Transcribed Date/Time: 06/30/2020 4:34 PM
== END 2020-06-30 13:17 | DRG 640 ==
LOC: ERS 17:25 → 2SE 21:39 → OBSVTOIN 06-25 11:23
PROVIDERS: ADMIT Internal Medicine; ATTEND Internal Medicine
DX: E87.1 Hypo-osmolality and hyponatremia (principal); G93.41 Metabolic encephalopathy; G45.9 Transient cerebral ischemic attack, unspecified; G81.91 Hemiplegia, unspecified affecting right dominant side; R47.01 Aphasia; N13.30 Unspecified hydronephrosis; I24.8 Other forms of acute ischemic heart disease; I10 Essential (primary) hypertension; E11.9 Type 2 diabetes mellitus without complications; K21.9 Gastro-esophageal reflux disease without esophagitis; M10.9 Gout, unspecified; R47.81 Slurred speech; I49.5 Sick sinus syndrome; I48.91 Unspecified atrial fibrillation; E78.00 Pure hypercholesterolemia, unspecified; R79.89 Other specified abnormal findings of blood chemistry; I35.0 Nonrheumatic aortic (valve) stenosis; Z79.82 Long term (current) use of aspirin; Z90.710 Acquired absence of both cervix and uterus; Z95.0 Presence of cardiac pacemaker; Z79.899 Other long term (current) drug therapy; Z79.84 Long term (current) use of oral hypoglycemic drugs; Z88.0 Allergy status to penicillin; Z88.6 Allergy status to analgesic agent; Z20.828 Contact with and (suspected) exposure to other viral communicable diseases
CPT/HCPCS: 36415; 36416; 36600; 70450; 70496; 70498; 71045; 80048; 80053; 80061; 81001; 82550; 82553; 83605; 83735; 83935; 84300; 84443; 84484; 85025; 85610; 85730; 87040; 87635; 90471; 90732; 93005; 95816; 95819; 96360; 96361; 96372; 96374; G0009; G0378; J1650; J2405; J3475; Q9967; U0003

== ENCOUNTER 2020-08-26 17:39 | Inpatient (IN) | payer MEDICARE ==
[2020-08-26] MEDS ORDERED: Ondansetron PF 4 MG/2 ML Vial ONE (19:34)
[2020-08-26 19:49] LABS: #Eosinphils 0.1 thou/uL (0.0-0.7); #Lymphocytes 1.4 thou/uL (1.20-3.40); #Monocytes 0.5 thou/uL (0.11-0.59); #Neutrophils 2.3 thou/uL (1.40-6.50); %Basophils 1.1 % (0.0-1.0); %Eosinophils 2.3 % (0.0-10.0); %Lymphocytes 31.6 % (21.0-51.0); %Monocytes 11.2 % (0.0-10.0); %Neutrophils 53.8 % (42.0-75.0); Hemoglobin 11.5 g/dL (12.0-16.0); Mean Corpuscular HGB CONC 33.2 g/dL (32.0-36.0); Mean Corpuscular Hemoglobin 31.4 pg (27.0-31.0); Mean Corpuscular Volume 94.4 fL (78.0-98.0); Mean Platelet Volume 6.9 fL (7.4-10.4); Platelet Count 256 thou/uL (130-400); RBC Distribution Width 12.7 % (11.5-14.5); Red Blood Cell (RBC) Count 3.66 mill/uL (4.20-5.40); White Blood Cell (WBC) Count 4.3 thou/uL (4.8-10.8)
[2020-08-26 20:12] LABS: ALT (SGPT) 10 U/L (8-55); AST (SGOT) 16 U/L (5-34); Alkaline Phosphatase 98 U/L (40-110); Anion Gap 16 mmol/L (10-20); BUN (Urea Nitrogen) 10 mg/dL (9.8-20.1); Bilirubin, Total 0.3 mg/dL (0.2-1.2); Calc. Creatinine Clearance 0 mL/min (70-130); Calcium 9.7 mg/dL (7.8-10.44); Carbon Dioxide 23 mmol/L (23-31); Chloride 96 mmol/L (98-107); Estimated GFR-MDRD 69; Globulin 2.8 g/dL (2.4-3.5); Glucose 87 mg/dL (83-110); Lipase 4 U/L (8-78); Potassium 4.7 mmol/L (3.5-5.1); Protein, Total 6.8 g/dL (6.0-8.3); Sodium 130 mmol/L (136-145)
[2020-08-26 20:34] LABS: CKMB 3.5 ng/mL (0-6.6)
[2020-08-26 21:23] LABS: Bilirubin Negative (Negative); Blood, Urine Negative (Negative); Clarity Clear (Clear); Glucose, Urine (Dipstick) Normal (Negative); Ketone, Urine Negative (Negative); Leukocyte Negative Leu/uL (Negative); Nitrite Negative (Negative); Protein, Urine (Dipstick) Negative (Neg-Trace); Specific Gravity, Urine 1.004 (1.002-1.036); Urobilinogen Normal mg/dL (Less than 2)
--- NOTE | 2020-08-26 21:30 | CT ---
CT ABDOMEN WITH CONTRAST CT PELVIS WITH CONTRAST: DATE: 08/26/2020 HISTORY: 89-year-old female with lower abdominal pain COMPARISON: 05/17/2020 (The report of that prior CT is unavailable) TECHNIQUE: IV injection of iodinated contrast media: administered. Oral contrast media:Not administered FINDINGS: Large volume of stool throughout the colon. Large amount of bowel gas throughout small and large intestine. No small bowel dilation. Redundant colon. No pneumoperitoneum, pleural effusion, basilar pulmonary consolidation, or ascites. No abscess. Distended urinary bladder with normal, thin story. No hydronephrosis. No abdominal aortic aneurysm. Atrophic pancreas. No pathology of liver or spleen identified. Appendix difficult to identify because of lack of visceral fat No interval change detected. Severe lumbar spondylosis. IMPRESSION: 1) evidence for constipation. 2) severe lumbar spondylosis
[2020-08-26] MEDS ORDERED: Aspirin 325 MG TAB ONE (21:52)
[2020-08-26] MEDS ORDERED: Ondansetron PF 4 MG/2 ML Vial IVP PRN (22:24)
[2020-08-26] MEDS ORDERED: Nitroglycerin 0.4 MG TAB (25 Tab Bottle) SL PRN (22:24)
[2020-08-26] MEDS ORDERED: Bisacodyl 5 MG TAB PO PRN (22:24)
--- NOTE | 2020-08-26 23:06 | PDOC.BPN ---
- Brief Progress Note [id number] HP
[2020-08-26] MEDS ORDERED: Dextrose 50% Abboject 50 ML SYRINGE SLOW IVP PRN (23:07)
[2020-08-26] MEDS ORDERED: HumaLOG 300 UNITS/3 ML VIAL SC PRN (23:07)
[2020-08-26] MEDS ORDERED: Dextrose 5% in Water 1,000 ML IV PRN (23:07)
[2020-08-26 23:46] LABS: Troponin I 0.051 ng/mL (< 0.028)
[2020-08-27 00:27] VITALS: BMI 22.6
[2020-08-27] MEDS ORDERED: Enoxaparin Sodium 80 MG/0.8 ML SYRINGE SC SCH (02:00)
[2020-08-27 02:02] LABS: Troponin I 0.054 ng/mL (< 0.028)
--- NOTE | 2020-08-27 02:02 | HP ---
CHIEF COMPLAINT: Abdominal discomfort. HISTORY OF PRESENT ILLNESS: Ms. Richardson is an 89-year-old female with past medical history of hypertension, hyperlipidemia, diabetes, type 2, cardiac pacemaker, among others, presents to the emergency room with epigastric discomfort and constipation. The patient has been constipated for the last 3 days. She describes the discomfort as achy. Workup in the emergency room including initial troponin was slightly elevated at 0.05. CT abdomen showed evidence of constipation, otherwise no acute finding. Troponin 0.056. Sodium is 130. WBC count is 4.3, hemoglobin 11.5, platelet 256. The patient's EKG showed paced rhythm. The patient is being admitted in the hospital for further management. PAST MEDICAL HISTORY: As mentioned above in history of present illness. PAST SURGICAL HISTORY: 1. Cardiac pacemaker. 2. Hysterectomy. PAST PSYCHIATRIC HISTORY: None. SOCIAL HISTORY: She denies alcohol drinking, drug use or smoking history. FAMILY HISTORY: Reviewed and noncontributory. HOME MEDICATIONS: Please see home medication reconciliation form for updated medications. ALLERGIES: ALLERGIC TO CODEINE, PENICILLAMINE, AND PENICILLIN, THIS IS UNCONFIRMED. REVIEW OF SYSTEMS: Review of 14 systems negative except what is mentioned in history of present illness. PHYSICAL EXAMINATION: GENERAL: The patient is awake, alert, in mild distress. VITAL SIGNS: Blood pressure 146/83, pulse is 70, respiratory rate 16, temperature 98.2, oxygen saturations 98% on room air. HEAD AND NECK: Normocephalic, atraumatic. NECK: Supple. CHEST: Fair bilateral air entry. HEART: S1, S2, heart murmur. ABDOMEN: Soft. Mild epigastric tenderness. Bowel sounds present. NEUROLOGIC: Awake, alert, oriented x3. No focal deficits. PSYCHIATRIC: Unable to assess. EXTREMITIES: No clubbing or cyanosis. LABORATORY DATA: As mentioned above in history of present illness. IMAGING STUDIES: As mentioned above in history of present illness. ASSESSMENT: 1. Acute epigastric pain/lower chest pain, rule out acute coronary syndrome. 2. Indeterminate/elevated troponin. 3. Constipation. 4. Hyponatremia. 5. Hypertension. 6. Hyperlipidemia. 7. Diabetes mellitus, type 2. 8. Cardiac pacemaker. PLAN: 1. Admit. 2. Telemonitor. 3. Aspirin was given in the ED. 4. We will give the patient one dose of Lovenox tonight, reassess in a.m. 5. Serial troponins. 6. Consult Cardiology for evaluation and further recommendations. 7. Reconcile home medications. 8. DVT prophylaxis as appropriate. 9. Expected length of stay, 1 midnight if patient is stable and further workup negative. Job ID: [id number]
[2020-08-27 04:27] LABS: #Basophils 0.1 thou/uL (0.0-0.2); #Eosinphils 0.1 thou/uL (0.0-0.7); #Lymphocytes 1.3 thou/uL (1.20-3.40); #Monocytes 0.5 thou/uL (0.11-0.59); #Neutrophils 1.8 thou/uL (1.40-6.50); %Basophils 1.5 % (0.0-1.0); %Eosinophils 2.3 % (0.0-10.0); %Lymphocytes 35.2 % (21.0-51.0); %Monocytes 12.4 % (0.0-10.0); %Neutrophils 48.6 % (42.0-75.0); Hemoglobin 11.9 g/dL (12.0-16.0); Mean Corpuscular HGB CONC 33.8 g/dL (32.0-36.0); Mean Corpuscular Volume 94.7 fL (78.0-98.0); Mean Platelet Volume 7.1 fL (7.4-10.4); Platelet Count 239 thou/uL (130-400); RBC Distribution Width 12.7 % (11.5-14.5); White Blood Cell (WBC) Count 3.7 thou/uL (4.8-10.8)
[2020-08-27 04:48] LABS: Anion Gap 12 mmol/L (10-20); BUN (Urea Nitrogen) 9 mg/dL (9.8-20.1); Calc. Creatinine Clearance 55 mL/min (70-130); Calcium 9.8 mg/dL (7.8-10.44); Carbon Dioxide 24 mmol/L (23-31); Cardiac Risk 2.7 (Less than 4.5); Chloride 101 mmol/L (98-107); Cholesterol 191 mg/dl (< 200 Desired); Estimated GFR-MDRD 76; Glucose 84 mg/dL (83-110); HDL Cholesterol 71 mg/dL (>60 Neg Risk); LDL Cholesterol, Calculated 108 mg/dL; Potassium 4.3 mmol/L (3.5-5.1); Sodium 133 mmol/L (136-145); Triglycerides 60 mg/dL (Less than 150)
[2020-08-27] MEDS: Aspirin 325 mg Enteric Coated Tablet PO SCH (08:15)
[2020-08-27] MEDS: Famotidine/PF 20 mg/2ml Vial SLOW IVP SCH ×2 (08:15→20:52)
--- NOTE | 2020-08-27 08:54 | PDOC.HOSPP ---
- Subjective Encounter Date: 08/27/20 Encounter Time: 11:00 Subjective: Patient denying any chest pain this morning. Some "numbness" in her WEST region on and off that she attributes to gas. Has chronic constipation and reports that she has to take some sort of suppository at home to get any bowel movements at all in recent months. - Objective Vital Signs & Weight: Vital Signs (12 hours) Temp Pulse Resp BP Pulse Ox 08/27/20 08:41 100 08/27/20 08:00 97.7 F 60 17 145/72 H 100 08/27/20 03:34 97.7 F 67 16 137/75 98 08/27/20 00:24 97.4 F L 64 16 166/82 H 99 Weight Weight 171 lb 1.6 oz Result Diagrams: 08/27/20 03:58 08/27/20 03:58 Additional Labs: Accuchecks 08/27/20 08/27/20 05:39 00:17 POC Glucose 84 90 Hospitalist ROS - Review of Systems Constitutional: denies: fever, chills Respiratory: denies: cough, shortness of breath Cardiovascular: denies: chest pain, palpitations Gastrointestinal: reports: constipation. denies: nausea, vomiting, abdominal pain - Medication Medications: Active Medications Generic Name Dose Route Start Last Admin Trade Name Ronq PRN Reason Stop Dose Admin Aspirin 325 mg 08/27/20 09:00 08/27/20 08:15 Aspirin 325 Mg Enteric Coated Tablet PO 325 mg DAILY ELISSA Administration Famotidine 20 mg 08/27/20 09:00 08/27/20 08:15 Famotidine/Pf 20 Mg/2ml Vial SLOW IVP 20 mg Q12HR ELISSA Administration - Exam General Appearance: NAD, awake alert ENT: moist mucosa Heart: RRR, no murmur, no gallops, no rubs Respiratory: CTAB, no wheezes, no rales, no ronchi Gastrointestinal: soft, non-tender, non-distended, normal bowel sounds Psychiatric: normal affect, normal behavior Hosp A/P (1) Chest pain Code(s): R07.9 - CHEST PAIN, UNSPECIFIED Status: Resolved (2) Elevated troponin Code(s): R79.89 - OTHER SPECIFIED ABNORMAL FINDINGS OF BLOOD CHEMISTRY Status: Chronic Plan: indeterminate, stable from last 2 admissions this Fall (3) Constipation Code(s): K59.00 - CONSTIPATION, UNSPECIFIED Status: Chronic (4) Heart block Code(s): I45.9 - CONDUCTION DISORDER, UNSPECIFIED Status: Chronic Plan: With pacemaker placed a couple months ago (5) Hyponatremia Code(s): E87.1 - HYPO-OSMOLALITY AND HYPONATREMIA Status: Acute (6) DMII (diabetes mellitus, type 2) Status: Chronic (7) HTN (hypertension) Code(s): I10 - ESSENTIAL (PRIMARY) HYPERTENSION Status: Chronic (8) HLD (hyperlipidemia) Code(s): E78.5 - HYPERLIPIDEMIA, UNSPECIFIED Status: Chronic - Plan Troponins stable, likely chronic Cardiology consulted, Dr. Munoz has seen, medical management and checking ECHO Pain may be more GI, likely from constipation Will start laxatives, give an enema.
[2020-08-27] MEDS ORDERED: Furosemide 20 MG TAB PO PRN (08:56)
[2020-08-27] MEDS ORDERED: Enoxaparin Sodium 40 MG/0.4 ML SYRINGE SC SCH (09:00)
[2020-08-27] MEDS ORDERED: Polyethylene Glycol 3350 17 GM Packet PO SCH (09:00)
[2020-08-27] MEDS ORDERED: FLU VACC QS2020-21(65YR UP)/PF 240 MCG/0.7 ML SYRINGE IM ONE (09:00)
--- NOTE | 2020-08-27 09:28 | CON ---
DATE OF CONSULTATION: REASON FOR CONSULTATION: Elevated troponin. PRIMARY EQUIPMENT OPERATION INSTRUCTOR: Hair Munoz MD HISTORY OF PRESENT ILLNESS: Ms. Richardson is a very pleasant 89-year-old woman with a history of pacemaker implantation, who was recently presented with abdominal discomfort. She did have a troponin drawn, which is 0.05. She had no symptoms of chest pain, pressure, shortness of breath, or other associated symptoms. CT scan of the abdomen did suggest constipation with no other acute findings. PAST MEDICAL HISTORY: Hysterectomy, pacemaker implantation. SOCIAL HISTORY: No current tobacco or alcohol use. HOME MEDICATIONS: 1. Lisinopril. 2. Metformin. 3. Rosuvastatin. 4. MiraLAX. 5. Omeprazole. 6. Lasix. 7. Carvedilol. 8. Aspirin. 9. Allopurinol. REVIEW OF SYSTEMS: A 10-point review of systems is reviewed as above, otherwise negative. PHYSICAL EXAMINATION: GENERAL: Patient is a pleasant female who is in no acute distress. The patient appears their stated age. VITAL SIGNS: Blood pressure 142/72, pulse 60, respirations 20. NEUROLOGIC: The patient is alert and oriented x3 with no focal neurologic deficits. HEENT: Sclerae without icterus. Mouth has moist mucous membranes with normal pallor. NECK: No JVD. Carotid upstroke brisk. No bruits bilaterally. LUNGS: Clear to auscultation with unlabored respirations. BACK: No scoliosis or kyphosis. CARDIAC: Regular rate and rhythm with normal S1 and S2. No S3 or S4 noted. No significant rubs, murmurs, thrills, or gallops noted throughout the precordium. PMI is not displaced. There is no parasternal heave. ABDOMEN: Soft, nontender, nondistended. No peritoneal signs present. No hepatosplenomegaly. No abnormal striae. EXTREMITIES: 2+ femoral and 2+ dorsalis pedis pulses. No cyanosis, clubbing, or edema. SKIN: No gross abnormalities. PERTINENT LABORATORY DATA: Hemoglobin 11.9, hematocrit 35.1. Creatinine 0.85. Peak troponin 0.05. EKG shows paced rhythm. IMPRESSION: 1. Elevated troponin. 2. Abdominal discomfort. RECOMMENDATIONS: Ms. Richardson's symptoms do not appear to be anginal. She has no current symptoms suggesting angina. Her abdominal pain has improved. Her elevated troponin likely related to demand ischemia. She has had elevated troponin levels in May in addition to June. This was not felt to be a new finding. Based on her comorbidities, I would recommend a more conservative approach. We would recommend managing her blood pressure and heart rate aggressively. I agree with aspirin. Continue beta stephany therapy. Consider long-acting nitrates if symptoms develop. We will review her echo. Job ID: [id number]
[2020-08-27] MEDS: Carvedilol 6.25 MG TAB PO SCH ×3 (09:45→23:55)
[2020-08-27] MEDS: Lisinopril 10 MG TAB PO SCH (09:45)
[2020-08-27] MEDS: Senokot S 8.6-50 MG TAB PO SCH ×2 (09:46→20:52)
[2020-08-27] MEDS: Allopurinol 100 MG TAB PO SCH (09:46)
[2020-08-27] MEDS ORDERED: Fleet Enema 133 ML BOT PR SCH (12:30)
[2020-08-27 14:05] LABS: SARS-CoV-2 MS2 Positive; SARS-CoV-2 N Gene Negative; SARS-CoV-2 S Gene Negative; SARS-CoV-2 by NAA Not Detected (NotDetected); SARS-CoV-2 orf1ab Negative
[2020-08-27] MEDS: Rosuvastatin 20 MG TAB PO SCH (20:52)
[2020-08-28] MEDS: Carvedilol 6.25 MG TAB PO SCH ×3 (00:39→21:07)
--- NOTE | 2020-08-28 07:52 | PDOC.HOSPP ---
- Subjective Encounter Date: 08/28/20 Encounter Time: 10:30 Subjective: Patient without any chest pain. Abdomen feels pressure but no pain today. No N/V. Still no BM. Passing gas. - Objective Vital Signs & Weight: Vital Signs (12 hours) Temp Pulse Resp BP Pulse Ox 08/28/20 04:00 97.5 F L 60 16 125/62 99 08/28/20 01:35 94 L 08/27/20 23:54 145/73 H Weight Weight 171 lb 1.6 oz I&O: 08/27/20 08/28/20 08/29/20 06:59 06:59 06:59 Intake Total 960 Balance 960 Result Diagrams: 08/27/20 03:58 08/27/20 03:58 Additional Labs: Accuchecks 08/28/20 08/27/20 08/27/20 06:02 20:56 17:17 POC Glucose 98 86 84 08/27/20 11:07 POC Glucose 165 H Hospitalist ROS - Review of Systems Constitutional: denies: fever, chills Respiratory: denies: cough, shortness of breath Cardiovascular: denies: chest pain, palpitations Gastrointestinal: reports: constipation. denies: nausea, vomiting - Medication Medications: Active Medications Generic Name Dose Route Start Last Admin Trade Name Freq PRN Reason Stop Dose Admin Allopurinol 100 mg 08/27/20 09:00 08/27/20 09:46 Allopurinol 100 Mg Tab PO 100 mg DAILY ELISSA Administration Aspirin 325 mg 08/27/20 09:00 08/27/20 08:15 Aspirin 325 Mg Enteric Coated Tablet PO 325 mg DAILY ELISSA Administration Carvedilol 6.25 mg 08/27/20 09:00 08/28/20 00:39 Carvedilol 6.25 Mg Tab PO 6.25 mg BID ELISSA Administration Famotidine 20 mg 08/27/20 09:00 08/27/20 20:52 Famotidine/Pf 20 Mg/2ml Vial SLOW IVP 20 mg Q12HR ELISSA Administration Insulin Human Lispro 0 units 08/26/20 23:07 08/27/20 11:44 Humalog 300 Units/3 Ml Vial SC 2 unit .MILD SLIDING SCALE PRN Administration Mild Correctional Scale Lisinopril 10 mg 08/27/20 09:00 08/27/20 09:45 Lisinopril 10 Mg Tab PO 10 mg DAILY ELISSA Administration Polyethylene Glycol 17 gm 08/27/20 09:00 08/27/20 09:44 Polyethylene Glycol 3350 17 Gm Packet PO 17 gm DAILY ELISSA Administration Rosuvastatin Calcium 20 mg 08/27/20 21:00 08/27/20 20:52 Rosuvastatin 20 Mg Tab PO 20 mg HS ELISSA Administration - Exam General Appearance: NAD, awake alert ENT: moist mucosa Heart: RRR, no murmur, no gallops, no rubs Respiratory: CTAB, no wheezes, no rales, no ronchi Gastrointestinal: soft, non-tender, normal bowel sounds Gastrointestinal - other findings: mild distension Psychiatric: normal affect, normal behavior, A&O x 3 Hosp A/P (1) Chest pain Code(s): R07.9 - CHEST PAIN, UNSPECIFIED Status: Resolved (2) Elevated troponin Code(s): R79.89 - OTHER SPECIFIED ABNORMAL FINDINGS OF BLOOD CHEMISTRY Status: Chronic (3) Constipation Code(s): K59.00 - CONSTIPATION, UNSPECIFIED Status: Chronic (4) Heart block Code(s): I45.9 - CONDUCTION DISORDER, UNSPECIFIED Status: Chronic (5) Hyponatremia Code(s): E87.1 - HYPO-OSMOLALITY AND HYPONATREMIA Status: Acute (6) DMII (diabetes mellitus, type 2) Status: Chronic (7) HTN (hypertension) Code(s): I10 - ESSENTIAL (PRIMARY) HYPERTENSION Status: Chronic (8) HLD (hyperlipidemia) Code(s): E78.5 - HYPERLIPIDEMIA, UNSPECIFIED Status: Chronic - Plan Troponins stable, likely chronic Cardiology consulted, Dr. Munoz has seen, medical management and checking ECHO Pain may be more GI, likely from constipation Increasing laxatives. No result from enema yesterday. Give a dose of Mag Citrate. Can try another enema as well. If no result from this will consult GI.
[2020-08-28] MEDS ORDERED: Magnesium Citrate 300 ML BOT PO SCH (08:00)
[2020-08-28] MEDS: Polyethylene Glycol 3350 17 GM Packet PO SCH ×2 (08:35→21:07)
[2020-08-28] MEDS: Senokot S 8.6-50 MG TAB PO SCH ×2 (08:35→21:07)
[2020-08-28] MEDS: Lisinopril 10 MG TAB PO SCH (08:35)
[2020-08-28] MEDS: Aspirin 325 mg Enteric Coated Tablet PO SCH (08:36)
[2020-08-28] MEDS: Allopurinol 100 MG TAB PO SCH (08:36)
[2020-08-28] MEDS ORDERED: metFORMIN 500 MG TAB PO SCH (09:00)
[2020-08-28] MEDS ORDERED: Non-Formulary Item 1 EACH (Omeprazole Magnesium [Prilosec] 10 MG Suspdr.Pkt) PO SCH (09:00)
[2020-08-28] MEDS: metFORMIN 500 MG TAB PO SCH (09:02)
--- NOTE | 2020-08-28 13:17 | PRG ---
DATE OF SERVICE: 08/28/2020 SUBJECTIVE: Ms. Richardson is doing well. No current complaints. OBJECTIVE: VITAL SIGNS: Blood pressure 102/55, pulse 61, temperature 97.5. LUNGS: Clear to auscultation. HEART: Regular rate and rhythm. ABDOMEN: Soft, nontender, and nondistended. EXTREMITIES: No edema. IMPRESSION: 1. Elevated troponin. 2. Abdominal pain. RECOMMENDATIONS: Ms. Richardson's symptoms are not felt to be cardiac. She has had elevated troponin in the past and has no current symptoms suggesting angina. We will continue conservative therapy. Plan is to follow up Ms. Richardson as an outpatient. Recommend continuing carvedilol. Recommend decreasing aspirin 81 q.a.m. Job ID: [id number]
[2020-08-28] MEDS ORDERED: Mineral Oil ENEMA PR SCH (14:15)
[2020-08-28] MEDS: Rosuvastatin 20 MG TAB PO SCH (21:07)
--- NOTE | 2020-08-29 08:20 | PDOC.HOSPP ---
- Subjective Encounter Date: 08/29/20 Encounter Time: 09:30 Subjective: Patient reports gurgling in stomach but still no bowel movement. No abdominal or chest pain. Feels well. Ready to go home. - Objective Vital Signs & Weight: Vital Signs (12 hours) Temp Pulse Resp BP BP Pulse Ox 08/29/20 07:16 99.3 F 62 18 132/72 98 08/29/20 05:36 97.5 F L 67 16 156/78 H 99 Weight Weight 171 lb 1.6 oz I&O: 08/28/20 08/29/20 08/30/20 06:59 06:59 06:59 Intake Total 960 Balance 960 Result Diagrams: 08/27/20 03:58 08/27/20 03:58 Additional Labs: Accuchecks 08/29/20 08/28/20 08/28/20 04:45 19:32 16:04 POC Glucose 89 88 101 H Hospitalist ROS - Review of Systems Constitutional: denies: fever, chills Respiratory: denies: cough, shortness of breath Cardiovascular: denies: chest pain, palpitations Gastrointestinal: reports: constipation. denies: nausea, vomiting, abdominal pain - Medication Medications: Active Medications Generic Name Dose Route Start Last Admin Trade Name Freq PRN Reason Stop Dose Admin Allopurinol 100 mg 08/27/20 09:00 08/28/20 08:36 Allopurinol 100 Mg Tab PO 100 mg DAILY ELISSA Administration Aspirin 325 mg 08/27/20 09:00 08/28/20 08:36 Aspirin 325 Mg Enteric Coated Tablet PO 325 mg DAILY ELISSA Administration Carvedilol 6.25 mg 08/27/20 09:00 08/28/20 21:07 Carvedilol 6.25 Mg Tab PO 6.25 mg BID ELISSA Administration Insulin Human Lispro 0 units 08/26/20 23:07 08/27/20 11:44 Humalog 300 Units/3 Ml Vial SC 2 unit .MILD SLIDING SCALE PRN Administration Mild Correctional Scale Lisinopril 10 mg 08/27/20 09:00 08/28/20 08:35 Lisinopril 10 Mg Tab PO 10 mg DAILY ELISSA Administration Metformin HCl 1,000 mg 08/28/20 09:00 08/28/20 09:02 Metformin 500 Mg Tab PO 1,000 mg DAILY ELISSA Administration Ondansetron HCl 4 mg 08/26/20 22:24 08/28/20 21:07 Ondansetron Pf 4 Mg/2 Ml Vial IVP 4 mg Q6H PRN Administration Nausea/Vomiting Pantoprazole Sodium 40 mg 08/28/20 09:00 08/28/20 08:38 Pantoprazole 40 Mg Tab PO 40 mg DAILY ELISSA Administration Polyethylene Glycol 17 gm 08/28/20 09:00 08/28/20 21:07 Polyethylene Glycol 3350 17 Gm Packet PO 17 gm BID ELISSA Administration Rosuvastatin Calcium 20 mg 08/27/20 21:00 08/28/20 21:07 Rosuvastatin 20 Mg Tab PO 20 mg HS ELISSA Administration Senna/Docusate Sodium 2 tab 08/28/20 09:00 08/28/20 21:07 Senokot S 8.6-50 Mg Tab PO 2 tab BID ELISSA Administration - Exam General Appearance: NAD, awake alert ENT: moist mucosa Heart: RRR, no murmur, no gallops, no rubs Respiratory: CTAB, no wheezes, no rales, no ronchi Gastrointestinal: soft, non-tender, non-distended, normal bowel sounds Psychiatric: normal affect, normal behavior, A&O x 3 Hosp A/P (1) Chest pain Code(s): R07.9 - CHEST PAIN, UNSPECIFIED Status: Resolved (2) Elevated troponin Code(s): R79.89 - OTHER SPECIFIED ABNORMAL FINDINGS OF BLOOD CHEMISTRY Status: Chronic (3) Constipation Code(s): K59.00 - CONSTIPATION, UNSPECIFIED Status: Chronic (4) Heart block Code(s): I45.9 - CONDUCTION DISORDER, UNSPECIFIED Status: Chronic (5) Hyponatremia Code(s): E87.1 - HYPO-OSMOLALITY AND HYPONATREMIA Status: Acute (6) DMII (diabetes mellitus, type 2) Status: Chronic (7) HTN (hypertension) Code(s): I10 - ESSENTIAL (PRIMARY) HYPERTENSION Status: Chronic (8) HLD (hyperlipidemia) Code(s): E78.5 - HYPERLIPIDEMIA, UNSPECIFIED Status: Chronic - Plan Troponins stable, likely chronic Cardiology consulted, Dr. Munoz has seen, medical management and checking ECHO Pain may have been more GI, likely from constipation. No more pain now. Increasing laxatives. No result from enema on 08/27. Tried another enema yesterday as well. Mag citrate was also written for but doesn't look like it was given. Will give another dose now. Last BM 4 days ago. Appropriate to continue treating the constipation at home. Will d/c home this afternoon.
[2020-08-29] MEDS: Carvedilol 6.25 MG TAB PO SCH (08:42)
[2020-08-29] MEDS: Aspirin 325 mg Enteric Coated Tablet PO SCH (08:42)
[2020-08-29] MEDS: Allopurinol 100 MG TAB PO SCH (08:42)
[2020-08-29] MEDS: metFORMIN 500 MG TAB PO SCH (08:43)
[2020-08-29] MEDS: Polyethylene Glycol 3350 17 GM Packet PO SCH (08:43)
[2020-08-29] MEDS: Lisinopril 10 MG TAB PO SCH (08:43)
[2020-08-29] MEDS: Senokot S 8.6-50 MG TAB PO SCH (08:44)
[2020-08-29] MEDS ORDERED: Magnesium Citrate 300 ML BOT PO SCH (09:30)
[2020-08-29 10:51] LABS: #Eosinphils 0.1 thou/uL (0.0-0.7); #Lymphocytes 0.8 thou/uL (1.20-3.40); #Monocytes 0.4 thou/uL (0.11-0.59); #Neutrophils 1.6 thou/uL (1.40-6.50); %Basophils 0.6 % (0.0-1.0); %Eosinophils 1.7 % (0.0-10.0); %Lymphocytes 28.3 % (21.0-51.0); %Monocytes 13.7 % (0.0-10.0); %Neutrophils 55.7 % (42.0-75.0); Hemoglobin 11.3 g/dL (12.0-16.0); Mean Corpuscular HGB CONC 33.1 g/dL (32.0-36.0); Mean Corpuscular Hemoglobin 31.1 pg (27.0-31.0); Mean Corpuscular Volume 94.1 fL (78.0-98.0); Platelet Count 244 thou/uL (130-400); RBC Distribution Width 12.6 % (11.5-14.5); Red Blood Cell (RBC) Count 3.63 mill/uL (4.20-5.40); White Blood Cell (WBC) Count 2.9 thou/uL (4.8-10.8)
[2020-08-29 10:56] LABS: Anion Gap 14 mmol/L (10-20); BUN (Urea Nitrogen) 12 mg/dL (9.8-20.1); Calc. Creatinine Clearance 46 mL/min (70-130); Calcium 9.5 mg/dL (7.8-10.44); Carbon Dioxide 24 mmol/L (23-31); Chloride 98 mmol/L (98-107); Estimated GFR-MDRD 62; Glucose 94 mg/dL (83-110); Potassium 4.4 mmol/L (3.5-5.1); Sodium 132 mmol/L (136-145)
[2020-08-29 11:30] VITALS: BP 130/70; TEMP 98
--- NOTE | 2020-08-29 13:06 | DIS ---
DATE OF ADMISSION: 08/26/2020 DATE OF DISCHARGE: 08/29/2020 PRIMARY CARE PHYSICIAN: [facility] in [place]. REASON FOR ADMISSION: Chest and abdominal pain. DIAGNOSES AT DISCHARGE: 1. Chest pain, resolved. 2. Abdominal pain secondary to constipation. 3. Indeterminate troponin secondary to possible demand ischemia thought to be chronic. 4. 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 5. Hyponatremia. 6. Diabetes mellitus type 2. 7. Hypertension. 8. Hyperlipidemia. PROCEDURES: 1. CT of the abdomen and pelvis with contrast showing constipation and severe lumbar spondylolysis. 2. Echocardiogram, results pending. CONSULTATIONS: Cardiology, Dr. Munoz. SUMMARY OF HOSPITAL COURSE: This is an 89-year-old female with a history of chronic constipation, also with a pacemaker, hypertension, hyperlipidemia, diabetes type 2, who presented with epigastric discomfort and up into her chest. The patient had an indeterminate troponin of 0.[address] as above. EKG just showed paced rhythm. The patient was put in the hospital for possible cardiac source of the pain. Dr. Munoz was consulted. He determined that this indeterminate troponin is chronic and likely due to demand ischemia. He does not think she is having acute coronary syndrome or any other acute cardiac issue. He did get an echocardiogram. We will follow up with her in his clinic on those results. The patient had resolution of all of her discomfort. She had persistent constipation, so we increased her laxatives, adding Senokot-S to her twice a day MiraLAX and trying some enema. She has not had a bowel movement yet, but is feeling comfortable and states this happens regularly at her home, so we are discharging her home with continued laxative treatment for her constipation. DISCHARGE MANAGEMENT: Discharged home. ACTIVITY: As tolerated. DIET: Diabetic diet. FOLLOWUP: With [facility] in [address] Munoz in 3 to 4 weeks to review the echo results. DISCHARGE MEDICATIONS: 1. Senokot-S 2 tablets twice a day until having soft regular bowel movements, 120 tablets dispensed. 2. Aspirin 81 mg daily, 30 tablets dispensed. 3. Crestor 20 mg at night, 30 tablets dispensed. 4. Carvedilol 6.25 mg twice a day. 5. Lisinopril 10 mg daily. 6. Metformin 1000 mg daily. 7. Omeprazole 20 mg twice a day. 8. MiraLAX 17 g twice a day. Job ID: [id number]
--- NOTE | 2020-08-29 16:35 | EKG ---
Test Reason : Blood Pressure : / mmHG Vent. Rate : 065 BPM Atrial Rate : 065 BPM P-R Int : 202 ms QRS Dur : 120 ms QT Int : 440 ms P-R-T Axes : 083 -75 101 degrees QTc Int : 457 ms Electronic ventricular pacemaker Confirmed by JULIANA MELTON DO ([id number]), image editor ILDEFONSO ORR ([id number]) on 08/29/2020 4:35:11 PM Referred By: Confirmed By:JULIANA MELTON DO
--- NOTE | 2020-08-29 16:35 | EKG ---
Test Reason : REPEAT Blood Pressure : / mmHG Vent. Rate : 063 BPM Atrial Rate : 063 BPM P-R Int : 168 ms QRS Dur : 164 ms QT Int : 488 ms P-R-T Axes : 063 -74 058 degrees QTc Int : 499 ms Electronic ventricular pacemaker Confirmed by JULIANA MELTON DO ([id number]), general expeditor [employer]DEFONSO ORR ([id number]) on 08/29/2020 4:35:14 PM Referred By: Confirmed By:JULIANA MELTON DO
== END 2020-08-29 12:21 | disposition home or self-care (01) | DRG 392 ==
LOC: ERS 17:39 → 2NO 22:30 → T4-A 08-28 10:57
PROVIDERS: ADMIT Internal Medicine; ATTEND Emergency Medicine
DX: K59.00 Constipation, unspecified (principal); I24.8 Other forms of acute ischemic heart disease; E87.1 Hypo-osmolality and hyponatremia; E11.9 Type 2 diabetes mellitus without complications; I10 Essential (primary) hypertension; E78.5 Hyperlipidemia, unspecified; Z20.828 Contact with and (suspected) exposure to other viral communicable diseases; E78.00 Pure hypercholesterolemia, unspecified; I45.9 Conduction disorder, unspecified; Z28.21 Immunization not carried out because of patient refusal; Z90.710 Acquired absence of both cervix and uterus; Z95.0 Presence of cardiac pacemaker; Z79.82 Long term (current) use of aspirin; Z79.84 Long term (current) use of oral hypoglycemic drugs; Z79.899 Other long term (current) drug therapy
CPT/HCPCS: 36415; 36416; 74177; 80048; 80053; 80061; 81003; 82553; 83605; 83690; 84484; 85025; 87635; 93005; 93306; 94760; 96374; J1650; J2405; Q9967; S0028; U0003

== ENCOUNTER 2021-03-11 11:06 | Outpatient (CLI) | payer MEDICARE | END 2021-03-11 11:07 | disposition home or self-care (01) | LOC: BICMAMMO 11:06 | PROVIDERS: ATTEND Nurse Practitioner Family | DX: Z13.820 Encounter for screening for osteoporosis (principal); M85.89 Other specified disorders of bone density and structure, multiple sites | CPT/HCPCS: 77080 ==

== ENCOUNTER 2021-06-03 16:06 | Inpatient (IN) | payer MEDICARE ==
[2021-06-03 17:29] LABS: #Eosinphils 0.1 thou/uL (0.0-0.7); #Lymphocytes 0.8 thou/uL (1.20-3.40); #Monocytes 0.6 thou/uL (0.11-0.59); #Neutrophils 2.6 thou/uL (1.40-6.50); %Basophils 0.8 % (0.0-1.0); %Eosinophils 1.5 % (0.0-10.0); %Lymphocytes 19.8 % (21.0-51.0); %Monocytes 14.4 % (0.0-10.0); %Neutrophils 63.5 % (42.0-75.0); Hemoglobin 10.7 g/dL (12.0-16.0); Mean Corpuscular HGB CONC 33.8 g/dL (32.0-36.0); Mean Corpuscular Hemoglobin 31.6 pg (27.0-31.0); Mean Corpuscular Volume 93.4 fL (78.0-98.0); Mean Platelet Volume 7.3 fL (7.4-10.4); Platelet Count 240 thou/uL (130-400); RBC Distribution Width 12.4 % (11.5-14.5); Red Blood Cell (RBC) Count 3.37 mill/uL (4.20-5.40); White Blood Cell (WBC) Count 4.1 thou/uL (4.8-10.8)
[2021-06-03 17:50] LABS: ALT (SGPT) 27 U/L (8-55); AST (SGOT) 34 U/L (5-34); Albumin 3.9 g/dL (3.4-4.8); Alkaline Phosphatase 110 U/L (40-110); Anion Gap 15 mmol/L (10-20); BUN (Urea Nitrogen) 12 mg/dL (9.8-20.1); Bilirubin, Total 0.3 mg/dL (0.2-1.2); CK (CPK) 129 U/L (29-168); Calc. Creatinine Clearance 0 mL/min (70-130); Calcium 9.6 mg/dL (7.8-10.44); Carbon Dioxide 23 mmol/L (23-31); Chloride 94 mmol/L (98-107); Globulin 2.8 g/dL (2.4-3.5); Glucose 110 mg/dL (83-110); Potassium 4.5 mmol/L (3.5-5.1); Protein, Total 6.7 g/dL (5.8-8.1); Sodium 127 mmol/L (136-145)
[2021-06-03 17:53] LABS: CKMB 2.1 ng/mL (0-6.6)
[2021-06-03] MEDS ORDERED: Aspirin Chewable 81 MG TAB ONE (21:52)
[2021-06-03] MEDS ORDERED: Furosemide 40 MG/4 ML VIAL ONE (21:53)
[2021-06-03] MEDS ORDERED: Nitroglycerin 2% Ointment 1 INCH/1 GM Packet ONE (21:53)
[2021-06-03 22:49] LABS: Troponin I 0.045 ng/mL (< 0.028)
[2021-06-04 02:43] LABS: Troponin I 0.033 ng/mL (< 0.028)
[2021-06-04 03:01] LABS: SARS-CoV-2 NAA Rapid Test Not Detected (NotDetected)
[2021-06-04] MEDS ORDERED: Ondansetron PF 4 MG/2 ML Vial IVP PRN (03:35)
[2021-06-04 05:05] LABS: Bilirubin Negative (Negative); Blood, Urine Negative (Negative); Clarity Clear (Clear); Glucose, Urine (Dipstick) Normal (Negative); Ketone, Urine Negative (Negative); Leukocyte Negative Leu/uL (Negative); Nitrite Negative (Negative); Protein, Urine (Dipstick) Negative (Neg-Trace); Specific Gravity, Urine 1.005 (1.002-1.036); Urobilinogen Normal mg/dL (Less than 2); pH, Urine 6.5 (5.0-9.0)
[2021-06-04] MEDS ORDERED: Furosemide 40 MG/4 ML VIAL ONE (05:52)
[2021-06-04] MEDS ORDERED: Furosemide 40 MG/4 ML VIAL SLOW IVP SCH (06:00)
[2021-06-04] MEDS ORDERED: HumaLOG 300 UNITS/3 ML VIAL SC PRN ×2 (06:16)
[2021-06-04] MEDS ORDERED: Dextrose 5% in Water 1,000 ML IV PRN (06:16)
[2021-06-04] MEDS ORDERED: Dextrose 50% Abboject 50 ML SYRINGE SLOW IVP PRN (06:16)
[2021-06-04] MEDS ORDERED: Enoxaparin Sodium 40 MG/0.4 ML SYRINGE ONE (08:11)
[2021-06-04 08:52] LABS: #Eosinphils 0.1 thou/uL (0.0-0.7); #Lymphocytes 0.8 thou/uL (1.20-3.40); #Monocytes 0.5 thou/uL (0.11-0.59); #Neutrophils 2.4 thou/uL (1.40-6.50); %Basophils 0.7 % (0.0-1.0); %Eosinophils 2.3 % (0.0-10.0); %Lymphocytes 20.9 % (21.0-51.0); %Monocytes 14.1 % (0.0-10.0); %Neutrophils 62.1 % (42.0-75.0); Hemoglobin 11.3 g/dL (12.0-16.0); Mean Corpuscular HGB CONC 33.2 g/dL (32.0-36.0); Mean Corpuscular Volume 93.3 fL (78.0-98.0); Mean Platelet Volume 7.2 fL (7.4-10.4); Platelet Count 218 thou/uL (130-400); RBC Distribution Width 12.5 % (11.5-14.5); Red Blood Cell (RBC) Count 3.64 mill/uL (4.20-5.40); White Blood Cell (WBC) Count 3.8 thou/uL (4.8-10.8)
[2021-06-04] MEDS: Enoxaparin Sodium 40 MG/0.4 ML SYRINGE SC SCH (08:53)
[2021-06-04 09:00] LABS: Anion Gap 14 mmol/L (10-20); BUN (Urea Nitrogen) 14 mg/dL (9.8-20.1); Calc. Creatinine Clearance 0 mL/min (70-130); Calcium 9.5 mg/dL (7.8-10.44); Carbon Dioxide 24 mmol/L (23-31); Chloride 94 mmol/L (98-107); Glucose 130 mg/dL (83-110); Potassium 3.8 mmol/L (3.5-5.1); Sodium 128 mmol/L (136-145)
[2021-06-04] MEDS: Furosemide 20 MG/2 ML VIAL SLOW IVP SCH (14:36)
[2021-06-04 14:49] VITALS: BMI 23.0
[2021-06-05 04:40] LABS: Hemoglobin 11.6 g/dL (12.0-16.0); Mean Corpuscular Hemoglobin 31.7 pg (27.0-31.0); Mean Corpuscular Volume 93.4 fL (78.0-98.0); Platelet Count 226 thou/uL (130-400); RBC Distribution Width 12.6 % (11.5-14.5); Red Blood Cell (RBC) Count 3.64 mill/uL (4.20-5.40); White Blood Cell (WBC) Count 3.6 thou/uL (4.8-10.8)
[2021-06-05 04:52] LABS: Anion Gap 16 mmol/L (10-20); BUN (Urea Nitrogen) 16 mg/dL (9.8-20.1); Calc. Creatinine Clearance 50 mL/min (70-130); Calcium 9.5 mg/dL (7.8-10.44); Carbon Dioxide 24 mmol/L (23-31); Chloride 95 mmol/L (98-107); Glucose 100 mg/dL (83-110); Potassium 3.9 mmol/L (3.5-5.1); Sodium 131 mmol/L (136-145)
[2021-06-05] MEDS: Acetaminophen 325 MG TAB PO PRN ×2 (05:03→09:00)
[2021-06-05] MEDS: Furosemide 20 MG/2 ML VIAL SLOW IVP SCH ×2 (05:04→15:25)
[2021-06-05 06:33] LABS: Band 1 % (5-11); Eosinophils 1 % (0-10); Lymphocytes 21 % (21-51); MDiff Complete? YES; Monocytes 14 % (0-10); Neutrophil 62 % (42-75); Reactive Lymphocytes 1 % (0-10)
[2021-06-05] MEDS: Enoxaparin Sodium 40 MG/0.4 ML SYRINGE SC SCH (09:00)
[2021-06-05] MEDS: Amlodipine 5 MG TAB PO SCH (09:01)
[2021-06-05] MEDS: Carvedilol 6.25 MG TAB PO SCH ×2 (09:01→21:27)
[2021-06-06 05:01] LABS: Hemoglobin 10.9 g/dL (12.0-16.0); Mean Corpuscular HGB CONC 34.1 g/dL (32.0-36.0); Mean Corpuscular Hemoglobin 31.8 pg (27.0-31.0); Mean Corpuscular Volume 93.2 fL (78.0-98.0); Mean Platelet Volume 7.4 fL (7.4-10.4); Platelet Count 237 thou/uL (130-400); RBC Distribution Width 12.5 % (11.5-14.5); Red Blood Cell (RBC) Count 3.42 mill/uL (4.20-5.40); White Blood Cell (WBC) Count 4.8 thou/uL (4.8-10.8)
[2021-06-06 05:18] LABS: Anion Gap 13 mmol/L (10-20); BUN (Urea Nitrogen) 15 mg/dL (9.8-20.1); Calc. Creatinine Clearance 45 mL/min (70-130); Calcium 9.5 mg/dL (7.8-10.44); Carbon Dioxide 29 mmol/L (23-31); Chloride 94 mmol/L (98-107); Glucose 106 mg/dL (83-110); Magnesium 1.7 mg/dL (1.6-2.6); Potassium 3.9 mmol/L (3.5-5.1); Sodium 132 mmol/L (136-145)
[2021-06-06] MEDS: Furosemide 20 MG/2 ML VIAL SLOW IVP SCH (06:11)
[2021-06-06 06:43] LABS: Band 9 % (5-11); Eosinophils 1 % (0-10); Lymphocytes 31 % (21-51); MDiff Complete? YES; Monocytes 5 % (0-10); Neutrophil 54 % (42-75)
[2021-06-06] MEDS: Amlodipine 5 MG TAB PO SCH (09:46)
[2021-06-06] MEDS: Carvedilol 6.25 MG TAB PO SCH (09:46)
[2021-06-06] MEDS: Enoxaparin Sodium 40 MG/0.4 ML SYRINGE SC SCH (09:47)
[2021-06-06 12:07] VITALS: BP 101/59; TEMP 98.2
== END 2021-06-06 12:46 | disposition home or self-care (01) | DRG 292 ==
LOC: ERS 16:06 → ERHOLD 22:07 → 2NO 06-04 13:31
PROVIDERS: ADMIT Internal Medicine; ATTEND Hospitalist
DX: I11.0 Hypertensive heart disease with heart failure (principal); E87.1 Hypo-osmolality and hyponatremia; I50.43 Acute on chronic combined systolic (congestive) and diastolic (congestive) heart failure; Z66 Do not resuscitate; Z20.822 Contact with and (suspected) exposure to COVID-19; R77.8 Other specified abnormalities of plasma proteins; D64.9 Anemia, unspecified; E78.5 Hyperlipidemia, unspecified; Z79.899 Other long term (current) drug therapy; Z88.5 Allergy status to narcotic agent; Z88.0 Allergy status to penicillin; Z95.0 Presence of cardiac pacemaker; Z90.710 Acquired absence of both cervix and uterus; Z83.3 Family history of diabetes mellitus
CPT/HCPCS: 36415; 36416; 71045; 80048; 80053; 81003; 82550; 82553; 83735; 83880; 83930; 84300; 84484; 85025; 93005; 93970; 96374; J1650; J1815; J1940; U0002